=== PATIENT | female | born 1945 | race Caucasian/White ===

== ENCOUNTER 2018-07-21 20:35 | Inpatient (IN) ==
[2018-07-22] MEDS ORDERED: Naloxone 0.4 MG/ML INJ IVP PRN (02:27)
[2018-07-22] MEDS ORDERED: *HR* Dextrose 50 % in Water (Syg) 50 ML SYRINGE IVP PRN ×2 (02:31→19:32)
[2018-07-22] MEDS ORDERED: D5% in Water 1,000 ML IVC PRN ×2 (02:31→19:32)
[2018-07-22] MEDS ORDERED: Dextrose Gel 15 GM/37.5 ML TUBE PO PRN ×4 (02:31→19:32)
--- NOTE | 2018-07-22 02:49 | Internal Med History&Physical ---
Date of Encounter: 07/22/18 Time of Encounter: 01:30 Internal Medicine - H&P: HPI Chief complaint: Altered mental status Admitted From: Hospital to Hospital Transfer Plans for Post Hospital Care: Home History of present illness: Ms. Blakely is a 72 year old female Patient presented to the [facility] emergency room for altered mental status. She had been seen 2 days previously and was diagnosed with a DVT. She has a history of blood clots and was taking anticoagulation at home that she missed some doses. She was found to have a DVT and was started on Lovenox to be given at home. On the morning of her presentation she was difficult to awaken from sleep. In the afternoon her family brought her into the emergency room for further evaluation. 2 days ago as well patient had a low blood sugar in the 50s but she was asymptomatic. She has a history of stroke in 2010 affecting her left side. Her last known well was the evening prior to her presentation. Stroke alert was called. Vital signs: Temperature 90.8 degrees, pulse 83, respiratory rate 15, blood pressure 109/45, oxygen saturation 96 on 2 L. CBC: White count 19.8, hemoglobin 9.1, hematocrit 28.0, platelets 269. BMP: Sodium 136, potassium 4.6, chloride 104, bicarbonate 21, BUN 23, creatinine 1.53, glucose 128 Lactic acid 2.2 Ammonia 43 Total bilirubin 6.4 AST 133 ALT 126 Alkaline phosphatase 265 Troponin 0.06 Creatinine kinase 292 INR 1.3 Urinalysis: Large leukocyte esterase, numerous white blood cells, many bacteria, culture indicated Occult blood test negative Urine tox screen negative Blood alcohol level less than 10 EKG: Normal sinus rhythm with no ischemic changes. Imaging: Head CT: No acute intracranial abnormality, no change control specialist 48 hours Chest x-ray: No acute process Head and neck CT angiogram: Suboptimal due to contrast infiltration Abdomen and pelvis CT: No acute intra-abdominal or intrapelvic abnormality Emergency department spoke with neurology at [facility]. Recommended patient have an MRI, and opinion was thought that her symptoms may be more systematic problem than the simple stroke. Patient was given 2 L IV fluids, vancomycin and Zosyn. Blood cultures were drawn. Patient's mental status gradually improved, patient was started on heparin drip and transferred to [facility] for further management. Upon my evaluation, patient is resting comfortably in the hospital bed in no a cute distress. She is oriented to self, place, situation, birthday and patient new the current day. She denies chest pain, diarrhea, constipation, shortness of breath, dysuria. She has had middle abdominal pain, motion sickness from the ambulance ride and states that she has some pain when she has a bowel movement. Her family is at bedside. She states that she has a family history of blood cl ots as well as diabetes. She is a full code. Past Med Surg Social Fam HX - Past Medical History Medical history: COPD, CVA, diabetes, GERD, hyperlipidemia, hypertension, renal disease, other Additional medical history: CVA X3 Psychiatric history: no psych history - Past Surgical History Surgical History: cholecystectomy, other Additional surgical history: Tubal Ligation - Social History Smoking Status: Former smoker Smokeless Tobacco Status: No Alcohol use: none Drug use: none Internal Medicine - H&P: Meds Docusate [Colace] 100 mg PO BID 10/17/16 [History] Glimepiride [Amaryl] 3 mg PO DAILY 10/17/16 [History] Lisinopril [Zestril] 40 mg PO DAILY 10/17/16 [History] Omeprazole [PriLOSEC] 20 mg PO DAILY 10/17/16 [History] metFORMIN [Glucophage] 500 mg PO BIDWM 10/17/16 [History] Atorvastatin [Lipitor] 40 mg PO HS 07/19/18 [History] Enoxaparin [Lovenox] 150 mg SQ DAILY #30 syr 07/19/18 [Rx] Promethazine [Phenergan] 25 mg PO BID 07/19/18 [History] Allergy/AdvReac Type Severity Reaction Status Date / Time No Known Allergies Allergy Verified 07/19/18 14:42 All Systems PM: A 10-system review of systems was performed and is negative for pertinent findings except as documented above in the HPI. - Constitutional Vitals: Temp Pulse Resp BP Pulse Ox 97.9 F 79 15 117/56 95 07/22/18 00:31 07/22/18 00:31 07/22/18 00:31 07/22/18 00:31 07/22/18 00:31 General appearance: Present: cooperative, A&O X 2, pleasant, no acute distress, answers questions appropriately Exam: Patient alert to self, place, situation, birthdate and new the current day of the week. He could not think of the month. He - Head Head exam: Present: normal inspection - Eye Eye exam: Present: EOMI, scleral icterus - Respiratory Respiratory exam: Present: CTAB. Absent: rales, respiratory distress, rhonchi, wheezes - Cardiovascular Cardiovascular exam: Present: RRR. Absent: diastolic murmur, systolic murmur - GI/Abdominal GI/Abdominal exam: Present: normal bowel sounds, soft. Absent: tenderness Additional comments: Nontender to palpation - Extremities Exam Extremities exam: Present: calf tenderness, tenderness, warm, radial pulses palpable and symmetrical. Absent: pedal edema Additional comments: Left lower extremity tenderness - Neurological Exam Neurological exam: Present: motor sensory deficit. Absent: no focal deficits, strengths equal and symetr throughout, facial droop, speech deficit Additional comments: Left upper and lower extremity weakness compared to right, chronic secondary to CVA - Skin Skin exam: Present: dry, warm. Absent: normal color Additional comments: Jaundiced - Assessment and Plan (1) Altered mental status Current Visit: No Status: Acute Assessment and plan: Now improved from her initial presentation at [facility]. Family who are at bedside notice a significant improvement as well. No new focal neuro deficits. MRI in the morning Hold sedating meds Monitor blood sugars Qualifiers: Altered mental status type: somnolence Qualified Code(s): R40.0 - Somnolence (2) Elevated liver enzymes Current Visit: Yes Status: Acute Assessment and plan: Unknown cause. Patient denies history of hepatitis. Bilirubin 2 days ago was 2.4, now 6.4. Patient is jaundice on exam INR also elevated 1.3, and on repeat was 1.5. Platelet count stable however. Hepatitis panel in the morning Liver ultrasound Repeat a.m. labs GI consult (3) Anemia Current Visit: Yes Status: Acute Assessment and plan: Patient's hemoglobin has declined since her presentation to the ER on July 19. Her baseline is around 11. On repeat [facility] her hemoglobin was 9.1, then on recheck had dropped to 8.0. Stool occult blood test negative. No signs of obvious bleeding or bruising. Head CT negative. She has been on anticoagulants for some time. Started on heparin drip [facility]. Continue heparin drip, monitor for signs of bleeding. Type and screen Monitor CBC every 6 hours Qualifiers: Anemia type: unspecified type Qualified Code(s): D64.9 - Anemia, unspecified (4) Acute deep vein thrombosis (DVT) of iliac vein of left lower extremity Current Visit: No Status: Acute Assessment and plan: Patient started on heparin drip. Has history of blood clots, and has a family history of blood clots as well. Continue heparin drip. (5) UTI (urinary tract infection) Current Visit: No Status: Acute Assessment and plan: Patient had urine cultures from July 19 that have now grown back gram-negative rods. In the past she has grown out Escherichia coli sensitive to Zosyn. Repeat urine cultures as well as blood cultures were drawn and patient was started on vancomycin and Zosyn. Follow-up urine cultures Continue IV antibiotics Monitor for worsening signs of infection Qualifiers: Urinary tract infection type: site unspecified Hematuria presence: with hematuria Qualified Code(s): N39.0 - Urinary tract infection, site not specified; R31.9 - Hematuria, unspecified (6) Diabetes mellitus Current Visit: No Status: Acute Assessment and plan: Patient is not an insulin dependent diabetic Monitor sugars every 6 hours Nothing by mouth Low dose insulin sliding scale as needed Hold home meds. 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 Can consider repeating CT angiogram or MRI (8) DVT prophylaxis Current Visit: No Status: Inactive Assessment and plan: Continue heparin drip - Time Spent With Patient Total time spent is greater than 50% in coordination of care (as documented) at patient's floor/unit and/or counseling patient:
[2018-07-22] MEDS ORDERED: *HR* Heparin 5,000 UNIT/ML VIAL IVP PRN (03:01)
[2018-07-22] MEDS: Heparin 25,000 UNIT/250 ML D5W 25,000 UNIT/250 ML IV.SOLN IVC SCH (03:15)
[2018-07-22 03:49] LABS: Basophils % 0.1 %
[2018-07-22 03:51] LABS: Hematocrit 24.1 % (35.3-44.9); Hemoglobin 7.9 g/dL (11.5-15.4); Immature Granulocytes % 2.5 % (0-4); Mean Corpuscular HGB Conc 32.8 g/dL (31.6-35.5); Mean Corpuscular Volume 94.5 fL (83.0-100.0); Monocytes % 3.6 %; Neutrophils # 25.4 K/mcL (1.6-8.9); Platelet Count 226 K/mcL (140-400); Red Blood Count 2.55 M/mcL (3.82-4.97); Segmented Neutrophils % 86.8 %; White Blood Count 29.2 K/mcL (4.3-11.1)
[2018-07-22 03:53] LABS: Monocytes # 1.1 K/mcL (0.0-1.3)
[2018-07-22 04:15] LABS: Anisocytosis 1+ (Not Present); Hypochromasia Present (Not Present)
[2018-07-22 04:16] LABS: Platelet Estimate Normal (Normal)
[2018-07-22 04:19] LABS: Albumin 2.9 g/dL (3.5-5.7); Albumin/Globulin Ratio 0.9 (1.1-2.2); Bilirubin,Total 5.7 mg/dL (0.3-1.0); Calcium 8.1 mg/dL (8.6-10.3); Globulin 3.4 g/dL (2.4-3.5); Magnesium 1.4 mg/dL (1.6-2.6); Phosphorous 3.7 mg/dL (2.7-4.5); Potassium 4.5 mEq/L (3.5-5.1); Total Protein 6.3 g/dL (6.4-8.9); Troponin I 0.1 ng/mL (< 0.04)
[2018-07-22 04:31] LABS: INR 2.7; Prothrombin Time 30.2 Seconds (9.4-12.1)
[2018-07-22 04:34] LABS: Heparin anti-factor XA UFH > 2.00 IU/mL (0.30-0.70)
[2018-07-22 04:55] LABS: Activated Partial Thrombo Time > 360.0 Seconds (26.0-36.0)
[2018-07-22] MEDS: Insulin LISPRO 300 UNITS/3 ML VIAL SQ SCH ×4 (07:45→23:47)
[2018-07-22] MEDS ORDERED: Lidocaine -MPF 1% 5 ML AMPUL INFILT ONE (07:54)
[2018-07-22] MEDS ORDERED: Aspirin 325 MG TABLET PO ONE (09:41)
[2018-07-22 09:44] LABS: Hepatitis B Surface Antigen Nonreactive (Nonreactive)
--- NOTE | 2018-07-22 09:45 | Event Note ---
Date of Encounter: 07/22/18 Time of Encounter: 09:45 Patient is a 72y/o female transferred from [facility] for management of AMS and LE DVT. Patient seen and examined. Resting in bed and currently AAO x 3. Labs and vitals reviewed Noted to have worsening leukocytosis f/u blood, urine cultures f/u respiratory infection panel, legionell and strep pneumo ag. f/u liver US noted to have elevated TNI and cardiology evaluation has been requested As per records, pt was receiving Lovenox SQ prior to hospitalization, however unclear of the last administration time of Lovenox. Noted to have elevated level of Heparin Anti-Xa. Will hold heparin drip at this time. Repeat Heparin Anti-Xa, once normalized, will resume Heparin drip. Continue broad spectrum IV abx MRI brain reported lacunar infarct, neurology evaluation has been requested f/u 2D echo Care plan discussed with patient/RN/pharmacist/case management
[2018-07-22 10:13] LABS: Hepatitis C Virus Antibody Nonreactive (Nonreactive)
[2018-07-22 10:15] LABS: Hepatitis A Antibody IgM Reactive (Nonreactive); Hepatitis B Core IgM Reactive (Nonreactive)
[2018-07-22] MEDS: Piperacillin/Tazobactam 3.375 GM in 0.9 % Sodium Chloride Mini Bag 100 ML IVPB SCH ×3 (10:21→23:59)
[2018-07-22 10:44] LABS: Bilirubin,Urine Large (Negative); Blood,Urine Moderate (Negative); Color,Urine Yellow (Yellow); Glucose,Urine (UA) Normal (Normal); Ketones,Urine 15 mg/dL (Negative); Leukocyte Esterase,Urine Small (Negative); Nitrite,Urine Negative (Negative); PH,Urine 5.5 pH Units (5.0-8.0); Protein,Urine 100 mg/dL (Neg-Trace); Urobilinogen,Urine >=8.0 mg/dL (Normal)
[2018-07-22 10:59] LABS: Clarity,Urine Slightly Hazy (Clear)
[2018-07-22 11:02] LABS: Bacteria,Urine Few per hpf (None-Few); Squamous Epithelial Cell,Urine Few per lpf (None-Few)
[2018-07-22 11:04] LABS: Yeast,Urine Few per hpf (None Seen)
--- NOTE | 2018-07-22 11:56 | Gastroenterology Consult Note ---
<Clifford Paul - Last Filed: 07/22/18 11:54> Date of Encounter: 07/22/18 Time of Encounter: 09:40 - Assessment and plan (1) Elevated liver enzymes Current Visit: Yes Status: Acute Assessment and plan: On 07/19 total bili 2.4, AST 64, AT 122, and alk phos 230. Today total bili 5.7, AST 129, ALT 116, and alk phos 242. CT A/P at [facility] with no acute abnormality. Liver US with normal CBD and fatty liver. Patient is on Lipitor. Check MRCP. Complete liver workup. Hepatitis profile pending. - Time Spent With Patient Total time spent is greater than 50% in coordination of care (as documented) at patient's floor/unit and/or counseling patient: GI History of Present Illness - Data of Consult Patient: new to practice Consult date: 07/22/18 Requesting Physician: Piter Engle MD - Consult Narrative Reason for consult: Elevated LFTs History of present illness: Ms. Blakely is a 72 year old female with PMHx of COPD, CVA, DM, GERD, HLD, HTN, s/p cholecystectomy who presented to [facility] ED with AMS. She was diagnosed with DVT 2 days prior to admission. She has history to blood clots and missed some doses of her anticoagulation at home. We were consulted to evaluate elevated LFTs. On 07/19 total bili 2.4, AST 64, AT 122, and alk phos 230. Today total bili 5.7, AST 129, ALT 116, and alk phos 242. CT A/P at [facility] with no acute abnormality. Liver US with normal CBD and fatty liver. She denies any recent antibiotic use. She denies fever, chills, abdominal pain, nausea, vomiting, diarrhea, constipation, melena, or hematochezia. Procedures: EGD 12/29/2012 Dr. Rendon: Bile reflux gastritis. Colonoscopy 12/29/2012 Dr. Rendon: Normal. NSAIDs: None Anticoagulation: Lovenox Past Med Surg Social Fam HX - Past Medical History Medical history: COPD, CVA, diabetes, GERD, hyperlipidemia, hypertension, renal disease, other Additional medical history: CVA X3 Psychiatric history: no psych history - Past Surgical History Surgical History: cholecystectomy, other Additional surgical history: Tubal Ligation - Social History Smoking Status: Former smoker Smokeless Tobacco Status: No Alcohol use: none Drug use: none - Gastrointestinal Gastrointestinal: Present: as per HPI - Constitutional Constitutional: as per HPI - EENT Eyes: as per HPI Ears: Present: as per HPI Nose, mouth and throat: Present: as per HPI - Cardiovascular Cardiovascular ROS: Present: as per HPI - Respiratory Respiratory IM: Present: as per HPI - Genitourinary Genitourinary: Absent: change in color, Urinary frequency - Neurological ROS Neurological GI: Present: as per HPI - Hematologic/Lymphatic Hematologic/Lymphatic pediatric: Present: as per HPI - Musculoskeletal Musculoskeletal ROS GI: Present: as per HPI - Integumentary Integumentary GI: Present: as per HPI - Psychiatric ROS Psychiatric GI: Present: as per HPI - Endocrine Endocrine IM: Present: as per HPI - Constitutional Vitals: Temp Pulse Resp BP Pulse Ox 99.0 F 76 15 142/66 97 07/22/18 07:24 07/22/18 08:00 07/22/18 07:24 07/22/18 07:24 07/22/18 07:24 General appearance: Present: cooperative, A&O X 3, no acute distress, answers questions appropriately - Head Head exam: Present: atraumatic, normocephalic - Eye Eye exam: Present: scleral icterus - ENT ENT exam: Present: mucous membranes moist - Neck Neck exam general surgery: Present: normal inspection, trachea midline - Respiratory Respiratory exam: Present: CTAB. Absent: rales, rhonchi - Cardiovascular Cardiovascular exam: Present: RRR, +S1, +S2 - GI/Abdominal GI/Abdominal exam: Present: soft, no peritoneal signs. Absent: distended, firm, guarding, tenderness - Rectal Rectal exam: Present: deferred - Extremities Exam Extremities exam: Present: warm - Neurological Exam Neurological exam: Present: no focal deficits - Psychiatric Psychiatric exam: Present: normal affect, normal mood - Skin Skin exam: Present: dry, intact, warm. Absent: normal color (jaundice) Results - Labs CBC & Chem 7: 07/22/18 03:30 07/22/18 03:19 Labs: Last Result 07/22/18 07/22/18 03:19 08:20 Calcium 8.1 L Troponin I 0.10 H* 0.98 H* Entire Visit 07/22/18 07/22/1819 03:19 03:19 03:30 Hgb 7.9 L Hct 24.1 L PT 30.2 H D Total Bilirubin 5.7 H AST 129 H ALT 116 H - ABG ABG results: PT/INR, D-dimer PT 30.2 Seconds (9.4-12.1) H D 07/22/18 03:19 - Impressions Impressions Brain MRI 07/22/18 03:07 IMPRESSION: 1. Punctate lacunar infarction in the right subinsular white matter. No associated hemorrhage. 2. Parenchymal volume loss and sequela of chronic microvascular ischemic changes and old infarctions. The findings were sent to the Radiology Results Communication Center at 9:44 am on 07/22/2018to be communicated to a licensed caregiver. D/ / Uriel Aquino MD / Uriel Aquino MD Interpreting Provider: Uriel Aquino MD Liver Ultrasound 07/22/18 08:20 IMPRESSION: Status post cholecystectomy, with normal caliber common duct for the post cholecystectomy state. Hepatic echotexture can be in keeping with fatty liver or hepatocellular disease. D/ / Piter Briseno MD / Piter Briseno MD Interpreting Provider: Piter Briseno MD Consult Discharge Plan - Plan Referrals: Andriy West MD [Primary Care Provider] - 08/01/18 10:30 am <Nicholas Weaver - Last Filed: 07/22/18 14:54> Date of Encounter: 07/22/18 Time of Encounter: 14:00 - Time Spent With Patient Total time spent is greater than 50% in coordination of care (as documented) at patient's floor/unit and/or counseling patient: GI History of Present Illness - Data of Consult Requesting Physician: Piter Engle MD - Consult Narrative History of present illness: Ms. Blakely is a 72 year old female - Constitutional Vitals: Temp Pulse Resp BP Pulse Ox 97.5 F L 68 16 126/61 96 07/22/18 12:10 07/22/18 12:10 07/22/18 12:10 07/22/18 12:10 07/22/18 12:10 Results - Labs CBC & Chem 7: 07/22/18 03:30 07/22/18 03:19 Labs: Last Result 07/22/18 07/22/18 03:19 08:20 Calcium 8.1 L Troponin I 0.10 H* 0.98 H* Entire Visit 07/22/18 07/22/18 07/22/18 03:19 03:19 03:30 Hgb 7.9 L Hct 24.1 L PT 30.2 H D Total Bilirubin 5.7 H AST 129 H ALT 116 H - ABG ABG results: PT/INR, D-dimer PT 30.2 Seconds (9.4-12.1) H D 07/22/18 03:19 - Impressions Impressions Brain MRI 07/22/18 03:07 IMPRESSION: 1. Punctate lacunar infarction in the right subinsular white matter. No associated hemorrhage. 2. Parenchymal volume loss and sequela of chronic microvascular ischemic changes and old infarctions. The findings were sent to the Radiology Results Communication Center at 9:44 am on 07/22/2018to be communicated to a licensed caregiver. D/ / Uriel Aquino MD / Uriel Aquino MD Interpreting Provider: Uriel Aquino MD Liver Ultrasound 07/22/18 08:20 IMPRESSION: Status post cholecystectomy, with normal caliber common duct for the post cholecystectomy state. Hepatic echotexture can be in keeping with fatty liver or hepatocellular disease. D/ / Piter Briseno MD / Piter Briseno MD Interpreting Provider: Piter Briseno MD Abdomen MRI 07/22/18 09:36 IMPRESSION: Status post cholecystectomy. Two small stones in the common bile duct measuring up to 4 mm in size without significant biliary ductal dilatation. Unremarkable appearance of the pancreatic duct. Mild hepatic steatosis. D/ / 07/22/2018 12:07:35 Alexandre Mora MD / Génesis Banks Interpreting Provider: Alexandre Mora MD - Attending Attestation I have personally performed a face to face evaluation on this patient. I have reviewed and agree with the care plan. History and Exam by me shows: Patient seen. Examination patient is mildly jaundiced. Assessment: Patient with elevated LFTs due to Acute Hep A. #2: CBD stone but no biliary dilation obstruction. Doubt that CBD obstruction stone is causing any of her elevated LFTs. Recommendation: Symptomatic care for her acute hepatitis A. Patient will need ERCP with CBD stone removal in the near future once acute hepatitis A resolved
[2018-07-22] MEDS: 0.9 % Sodium Chloride 1,000 ML IVC SCH (13:07)
--- NOTE | 2018-07-22 13:33 | Cardiology Consult Note ---
<Magen Villafuerte - Last Filed: 07/22/18 14:10> Date of Encounter: 07/22/18 Time of Encounter: 13:31 Assessment and Plan (1) Elevated troponin Current Visit: Yes Status: Acute Elevated troponin at 0.10, 0.98. EKG -SR with possible old inferior infarct. Patient denies history of CAD. Denies chest pain. Likely demand ischemia in setting of acute anemia. Check TTE. Continue to trend troponin. She is a poor candidate for further ischemic evaluation with acute anemia. Do not recommend heparin gtt with anemia and INR 2.7. Discussion w patient/family: The assessment and plan as outlined above was discussed with the patient and/or family members who expressed understanding and agreement. All questions were ans wered. Thank you for involving us in the care of your patient. Please call with any questions. History of Present Illness Consult date: 07/22/18 Requesting physician: Clarita Waters Consult reason: elevated troponin Chief complaint: AMS History of present illness: Ms. Blakely is a 72 year old female with past medical history of DVT on SQ lovenox at home, DM type II, CVA, and HTN who presented to [facility] with AMS. She was found to have elevated troponin and was transferred to [facility] for further evaluation. She is also found to have lucunar infarct of MRI, neurology consulted. WBC seen to be elevating and she is undergoing work-up for infection. GI consulted for liver enzyme elevation. Cardiology consulted for elevated troponin. Patient is drowsy on my exam but answers questions appropriately. Denies history of CAD. Denies chest pain or SOB. Denies palpitations. Admits to BLE edema and orthopnea. She is unable to describe symptoms leading to hospitalization. Past Med Surg Social Fam HX - Past Medical History Medical history: COPD, CVA, diabetes, GERD, hyperlipidemia, hypertension, renal disease, other Additional medical history: CVA X3 Psychiatric history: no psych history - Past Surgical History Surgical History: cholecystectomy, other Additional surgical history: Tubal Ligation - Social History Smoking Status: Former smoker Smokeless Tobacco Status: No Alcohol use: none Drug use: none Medications and Allergies Docusate [Colace] 100 mg PO BID 10/17/16 [History] Glimepiride [Amaryl] 3 mg PO DAILY 10/17/16 [History] Lisinopril [Zestril] 40 mg PO DAILY 10/17/16 [History] Omeprazole [PriLOSEC] 20 mg PO DAILY 10/17/16 [History] metFORMIN [Glucophage] 500 mg PO BIDWM 10/17/16 [History] Atorvastatin [Lipitor] 40 mg PO HS 07/19/18 [History] Enoxaparin [Lovenox] 150 mg SQ DAILY #30 syr 07/19/18 [Rx] Promethazine [Phenergan] 25 mg PO BID 07/19/18 [History] Allergy/AdvReac Type Severity Reaction Status Date / Time No Known Allergies Allergy Verified 07/19/18 14:42 All Systems Review: The remainder of the systems were reviewed and are negative Physical Examination Vital Signs, Last 4 Hours Temp Pulse Resp BP Pulse Ox 07/22/18 12:10 97.5 F L 68 16 126/61 96 07/22/18 12:00 76 General: Conversant, No Apparent Distress, Other (drowsy) HEENT: Atraumatic, Normocephaly, Mucus Membranes Moist Neck: No JVD, Normal carotid pulses Cardiac: Reg Rate and Rhythm, Normal S1 and S2, No Murmur Lungs: Normal Breath Sounds, No Wheeze, Rales, Rhonchi Neuro: No focal deficits noted, Other (drowsy, favors right side, left sided weakness) Abdomen: Soft, Non-Tender Skin: No rashes noted on visualized skin Musculoskeletal: No Chest Wall Tenderness Extremities: No Clubbing, No Cyanosis, No Edema, Normal Pulses, Other (Trace BLE edema) Results 07/22/18 03:30 07/22/18 03:19 Lab Results 07/22/18 07/22/18 07/22/18 03:19 03:19 03:30 WBC 29.2 H Hgb 7.9 L Hct 24.1 L Plt Count 226 INR 2.7 D APTT > 360.0 H* D Sodium 140 Potassium 4.5 Chloride 109 H Carbon Dioxide 19 L BUN 28 H Creatinine 1.20 Glucose 155 H Calcium 8.1 L Magnesium 1.4 L Total Bilirubin 5.7 H AST 129 H ALT 116 H Alkaline Phosphatase 242 H Troponin I 0.10 H* 07/22/18 08:20 WBC Hgb Hct Plt Count INR APTT Sodium Potassium Chloride Carbon Dioxide BUN Creatinine Glucose Calcium Magnesium Total Bilirubin AST ALT Alkaline Phosphatase Troponin I 0.98 H* - Imaging and Cardiology Echo: pending - EKG Interpretation EKG results cardiology: personally reviewed Consult Discharge Plan - Plan Referrals: Andriy West MD [Primary Care Provider] - 08/01/18 10:30 am <Luis E Russell - Last Filed: 07/22/18 17:39> Date of Encounter: 07/22/18 - Attending Attestation Patient was seen and evaluated independently by me. Findings, assessment and plan were discussed at length with patient, questions answered. Agree with nurse practitioner's/resident's documentation. Addition as follows, Consulted for elevated troponin. 72yoCF ho CVAs, recent LLE DVT, DM, HTN, HLD. P/w AMS and worsening left hemiparesis which gradually resolved. MRI revealed acute CVA. Denied chest pain, dyspnea or palpitations. Trop max 1 and down trending. ECG SR, old IMI. Tele no events. VSS, CTA B/L, RR, LLE tenderness diameter>RLE. New moderate anemia, leukocytosis, PEDRO, hepatopathy. A: Mild troponin elevation, down trending, type II vs I Acute CVA Recent LLE DVT on A/C New moderate anemia Sepsis Hepatopathy P: pending TTE, if low EF, will need add BB and resume ACEi after PEDRO resolves c/w ASA, statin A/C plan per primary team (DVT, new anemia) likely outpatient ischemia workup Luis E Russell MD, PhD Assessment and Plan Discussion w patient/family: The assessment and plan as outlined above was discussed with the patient and/or family members who expressed understanding and agreement. All questions were answered. Thank you for involving us in the care of your patient. Please call with any questions. History of Present Illness History of present illness: Ms. Blakely is a 72 year old female All Systems Review: The remainder of the systems were reviewed and are negative Physical Examination Vital Signs, Last 4 Hours Temp Pulse Resp BP Pulse Ox 07/22/18 16:58 98.0 F 77 16 109/61 97 Results 07/22/18 03:30 07/22/18 03:19 Lab Results 07/22/18 07/22/18 07/22/18 03:19 03:19 03:30 WBC 29.2 H Hgb 7.9 L Hct 24.1 L Plt Count 226 INR 2.7 D APTT > 360.0 H* D Sodium 140 Potassium 4.5 Chloride 109 H Carbon Dioxide 19 L BUN 28 H Creatinine 1.20 Glucose 155 H Calcium 8.1 L Magnesium 1.4 L Total Bilirubin 5.7 H AST 129 H ALT 116 H Alkaline Phosphatase 242 H Troponin I 0.10 H* 07/22/18 07/22/18 07/22/18 08:20 14:20 15:30 WBC Hgb Hct Plt Count INR 1.8 APTT Sodium Potassium Chloride Carbon Dioxide BUN Creatinine Glucose Calcium Magnesium Total Bilirubin AST ALT Alkaline Phosphatase Troponin I 0.98 H* 0.08 H*
--- NOTE | 2018-07-22 15:15 | Neurology - Consult Note ---
Date of Encounter: 07/22/18 Time of Encounter: 15:08 Assessment and Plan (1) Acute CVA (cerebrovascular accident) Current Visit: Yes Status: Acute neuro consulted for acute CVA; etiology is a small vessel ischemic event MRI confirmed an acute punctate lacunar infarct in th right subinsular white matter She p/w AMS and confusion and increasing LUE, LLE weakness (chronically has Lt sided weakness s/p remote infarct) AMS and confusion has resolved. Neuro exam reveals B/L leg weakness Lt greater than right 3/5 on motor strength scale Left sided weakness is most likely exacerbated by underlying medical conditions One would not expect an infarct in the right subinsular white matter to cause motor sx; it would however, explain AMS and confusion She is ASA naive; I have started 81mg ASA QD now; will need to be on chronically for future CVA prevention C/W statin I strongly encouraged risk factor modifications and medication compliance c/w neuro assessments per protocol okay to normlize BP TTE pending Carotid duplex pending c/w medical and supportive care further recommendations pending the rest of the workup History of Present Illness Chief complaint: Acute CVA HPI: Ms. Blakely is a 72 year old female with a PMH of DM, GERD, HLD, HTN, renal disease and CVA 3. She presents to [facility] with a chief complaint of altered mental status and left-sided weakness. Of note, she was seen at [facility] 2 days ago and found to have an acute DVT in the left lower extremity. 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 In regards to the altered mental status and left-sided weakness she reports that approximately 2 days ago she began having episodes of confusion. She notes left sided weakness chronically but she reports that the weakness she is experiencing now is much worse than baseline. She denies any speech difficulty, dysphagia, headaches, dizziness, visual disturbance, ataxia, or paresthesias. She reports that her mental status is much improved since admission and is now alert and oriented 4. MRI of the brain confirmed an acute punctate lacunar infarct in the right 7 sellar white matter without associated hemorrhage. There is also parenchymal volume loss and subsequent of chronic microvascular ischemic changes and old infarctions. Past Med Surg Social Fam HX - Past Medical History Medical history: COPD, CVA, diabetes, GERD, hyperlipidemia, hypertension, renal disease, other Additional medical history: CVA X3 Psychiatric history: no psych history - Past Surgical History Surgical History: cholecystectomy, other Additional surgical history: Tubal Ligation - Social History Smoking Status: Former smoker Smokeless Tobacco Status: No Alcohol use: none Drug use: none Medications and Allergies Docusate [Colace] 100 mg PO BID 10/17/16 [History] Glimepiride [Amaryl] 3 mg PO DAILY 10/17/16 [History] Lisinopril [Zestril] 40 mg PO DAILY 10/17/16 [History] Omeprazole [PriLOSEC] 20 mg PO DAILY 10/17/16 [History] metFORMIN [Glucophage] 500 mg PO BIDWM 10/17/16 [History] Atorvastatin [Lipitor] 40 mg PO HS 07/19/18 [History] Enoxaparin [Lovenox] 150 mg SQ DAILY #30 syr 07/19/18 [Rx] Promethazine [Phenergan] 25 mg PO BID 07/19/18 [History] Allergy/AdvReac Type Severity Reaction Status Date / Time No Known Allergies Allergy Verified 07/19/18 14:42 All Systems: The remainder of the systems were reviewed and are negative Review of Systems: REVIEW OF SYSTEMS GENERAL: Negative for any nausea, vomiting, fevers, chills NEUROLOGIC: Positive-left arm and leg weakness worse than baseline. However she chronically has left-sided weakness S/P CVA. She is also reporting an altered mental status and confusion. This is also back to baseline. PSYCH: Mental status changes; patient reporting confusion. She is now back to baseline CARDIAC: Negative for any chest pain, dyspnea, peripheral edema or palpitations MUSCULOSKELETAL: Positive-loss of strength left arm and left leg Physical Examination - Vital Signs Vital Signs: Initial Vital Signs Temp Pulse Resp BP Pulse Ox 97.9 F 78 15 117/56 95 07/22/18 00:16 07/22/18 00:16 07/22/18 00:16 07/22/18 00:16 07/22/18 00:16 - Exam Exam: Examination: General Examination: *CONSTITUTIONAL: Alert and oriented x4, no acute distress *GENERAL APPEARANCE OF PATIENT ill appearing elderly, obese female *EYES: pupils equal, round, reactive to light and accommodation, conjunctiva clear *CARDIOVASCULAR no peripheral edema, distal temperature normal, dorsalis pedis pulses normal. see vitals Musculoskeletal: *GAIT AND STATION deferred *ASSESSMENT OF MUSCLE STRENGTH IN THE UPPER AND LOWER EXTREMITIES bilateral deltoid, bicep, tricep, template fitter strength 4/5, bilateral hip flexors ,anterior tibialis, dorsoflexion of the foot 3/5; however LLE is weaker in weaker weakner than RLE *MUSCLE TONE IN THE UPPER AND LOWER EXTREMITIES normal. No abnormal movements, fasciculations or atrophy identified. Neurological: *ORIENTATION to person, situation, time and place *RECURRENT AND REMOTE MEMORY intact *ATTENTION AND CONCENTRATION are normal *LANGUAGE FUNCTION no significant aphasia or dysarthia was noted. *FUND OF KNOWLEDGE aware of current events, past history, vocabulary *MENTAL attention span and concentration normal. *CN II optic fundi were normal, no papilledema noted. *CN III,IV, PERRLA extraocular eye movements were full, no nystagmus and no ptosis noted. *CN V shows normal sensation and jaw opens symmetrically. *CN VII shows normal facial movement symmetrically, upper and lower bilaterally. *CN VIII shows no significant hearing loss on exam *CN IX,,X palate elevated symmetrically *CN XI normal strength in the sternocleidomastoid muscles, symmetrical shoulder shrugging. *CN XII tongue protruded in the midline, with normal strength and movement. *SENSORY EXAMINATION light touch intact *REFLEXES: deep tendon reflexes were normal and symmetrical , grade 1/4 diffusely, no pathological reflexes were noted. *CEREBELLAR TESTING normal finger to nose, *PAIN LEVEL 0/10 Results - Laboratory Findings CBC and BMP: 07/22/18 03:30 07/22/18 03:19 Abnormal lab findings: Abnormal lab results WBC 29.2 K/mcL (4.3-11.1) H 07/22/18 03:30 RBC 2.55 M/mcL (3.82-4.97) L 07/22/18 03:30 Hgb 7.9 g/dL (11.5-15.4) L 07/22/18 03:30 Hct 24.1 % (35.3-44.9) L 07/22/18 03:30 RDW 20.0 % (11.5-14.5) H 07/22/18 03:30 25.4 K/mcL (1.6-8.9) H 07/22/18 03:30 Present (Not Present) A 07/22/18 03:30 1+ (Not Present) A 07/22/18 03:30 PT 30.2 Seconds (9.4-12.1) H D 07/22/18 03:19 APTT > 360.0 Seconds (26.0-36.0) H* D 07/22/18 03:19 Heparin Anti-Xa, Unfract 1.63 IU/mL (0.30-0.70) H* 07/22/18 10:05 Chloride 109 mEq/L (98-107) H 07/22/18 03:19 Carbon Dioxide 19 mEq/L (23-29) L 07/22/18 03:19 BUN 28 mg/dL (8-23) H 07/22/18 03:19 Est GFR ( Amer) 53 (> 60) L 07/22/18 03:19 Est GFR (Non-Af Amer) 44 (> 60) L 07/22/18 03:19 Glucose 155 mg/dL (70-105) H 07/22/18 03:19 POC Glucose 153 mg/dL (70-99) H 07/22/18 05:27 Calcium 8.1 mg/dL (8.6-10.3) L 07/22/18 03:19 Magnesium 1.4 mg/dL (1.6-2.6) L 07/22/18 03:19 5.7 mg/dL (0.3-1.0) H 07/22/18 03:19 AST 129 Units/L (13-39) H 07/22/18 03:19 ALT 116 Units/L (7-52) H 07/22/18 03:19 242 Units/L (34-104) H 07/22/18 03:19 0.08 ng/mL (< 0.04) H* 07/22/18 14:20 6.3 g/dL (6.4-8.9) L 07/22/18 03:19 2.9 g/dL (3.5-5.7) L 07/22/18 03:19 0.9 (1.1-2.2) L 07/22/18 03:19 100 mg/dL (Neg-Trace) H 07/22/18 10:30 15 mg/dL (Negative) H 07/22/18 10:30 Moderate (Negative) H 07/22/18 10:30 Large (Negative) H 07/22/18 10:30 >=8.0 mg/dL (Normal) H 07/22/18 10:30 Ur Leukocyte Esterase Small (Negative) H 07/22/18 10:30 3-5 per hpf (0-3) H 07/22/18 10:30 5-15 per hpf (0-3) H 07/22/18 10:30 Few per hpf (None Seen) H 07/22/18 10:30 Ur Culture Indicated? YES (NO) A 07/22/18 10:30 Hepatitis A IgM Ab Reactive (Nonreactive) H 07/22/18 08:20 Hep B Core IgM Ab Reactive (Nonreactive) H 07/22/18 08:20 - Diagnostic Findings Additional findings: MR/MR head/brain wo con IMPRESSION: 1. Punctate lacunar infarction in the right subinsular white matter. No associated hemorrhage. 2. Parenchymal volume loss and sequela of chronic microvascular ischemic changes and old infarctions. Consult Discharge Plan - Plan Referrals: Andriy West MD [Primary Care Provider] - 08/01/18 10:30 am
[2018-07-22 15:48] LABS: INR 1.8; Prothrombin Time 19.9 Seconds (9.4-12.1)
[2018-07-23] MEDS ORDERED: Naloxone 0.4 MG/ML INJ IVP PRN (01:31)
[2018-07-23 01:33] LABS: Basophils % 0.1 %; Eosinophils % 0.2 %; Hematocrit 21.2 % (35.3-44.9); Hemoglobin 6.8 g/dL (11.5-15.4); Lymphocytes # 1.3 K/mcL (0.6-4.6); Lymphocytes % 8.9 %; Mean Corpuscular HGB Conc 32.1 g/dL (31.6-35.5); Mean Corpuscular Hemoglobin 30.6 pg (28.0-33.3); Mean Corpuscular Volume 95.5 fL (83.0-100.0); Mean Platelet Volume 10.7 fL (9.4-12.4); Monocytes # 0.5 K/mcL (0.0-1.3); Monocytes % 3.1 %; Neutrophils # 12.7 K/mcL (1.6-8.9); Platelet Count 248 K/mcL (140-400); Red Blood Count 2.22 M/mcL (3.82-4.97); Red Cell Distribution Width 20.3 % (11.5-14.5); Segmented Neutrophils % 86.7 %; White Blood Count 14.7 K/mcL (4.3-11.1)
[2018-07-23 01:42] LABS: INR 1.4; Prothrombin Time 15.3 Seconds (9.4-12.1)
[2018-07-23 01:55] LABS: Albumin 2.5 g/dL (3.5-5.7); Albumin/Globulin Ratio 0.8 (1.1-2.2); Bilirubin,Total 2.8 mg/dL (0.3-1.0); Calcium 7.4 mg/dL (8.6-10.3); Globulin 3.2 g/dL (2.4-3.5); Magnesium 1.4 mg/dL (1.6-2.6); Phosphorous 2.6 mg/dL (2.7-4.5); Potassium 3.5 mEq/L (3.5-5.1); Total Protein 5.7 g/dL (6.4-8.9)
[2018-07-23] MEDS: Heparin 25,000 UNIT/250 ML D5W 25,000 UNIT/250 ML IV.SOLN IVC SCH (01:55)
[2018-07-23] MEDS: *HR* OxyCODONE Immed Rel 5 MG TABLET PO PRN (01:59)
[2018-07-23 02:31] LABS: Adenovirus Not Detected (Not Detect); Bordetella Pertussis Not Detected (Not Detect); Chlamydophila pneumoniae Not Detected (Not Detect); Coronavirus 229E Not Detected (Not Detect); Coronavirus HKU1 Not Detected (Not Detect); Coronavirus NL63 Not Detected (Not Detect); Coronavirus OC43 Not Detected (Not Detect); Human Metapneumovirus Not Detected (Not Detect); Human Rhinovirus/Enterovirus Not Detected (Not Detect); Influenza A Subtype 2009 H1 Not Detected (Not Detect); Influenza A Untypeable Not Detected (Not Detect); Influenza B Not Detected (Not Detect); Mycoplasma pneumoniae Not Detected (Not Detect); Parainfluenza Virus 1 Not Detected (Not Detect); Parainfluenza Virus 2 Not Detected (Not Detect); Parainfluenza Virus 3 Not Detected (Not Detect); Parainfluenza Virus 4 Not Detected (Not Detect); Respiratory Syncytial Virus Not Detected (Not Detect)
[2018-07-23] MEDS: Acetaminophen 325 MG TABLET PO PRN (03:38)
[2018-07-23] MEDS: 0.9 % Sodium Chloride 1,000 ML IVC SCH ×2 (03:41→21:55)
[2018-07-23 04:04] LABS: Basophils % 0.1 %; Eosinophils # 0.1 K/mcL (0.0-0.6); Eosinophils % 0.4 %; Hematocrit 20.9 % (35.3-44.9); Hemoglobin 6.9 g/dL (11.5-15.4); Immature Granulocytes % 0.7 % (0-4); Lymphocytes # 1.3 K/mcL (0.6-4.6); Lymphocytes % 9.3 %; Mean Corpuscular Hemoglobin 31.7 pg (28.0-33.3); Mean Corpuscular Volume 95.9 fL (83.0-100.0); Mean Platelet Volume 11.1 fL (9.4-12.4); Monocytes # 0.5 K/mcL (0.0-1.3); Monocytes % 3.3 %; Neutrophils # 11.7 K/mcL (1.6-8.9); Platelet Count 273 K/mcL (140-400); Red Blood Count 2.18 M/mcL (3.82-4.97); Red Cell Distribution Width 20.5 % (11.5-14.5); Segmented Neutrophils % 86.2 %; White Blood Count 13.6 K/mcL (4.3-11.1)
[2018-07-23] MEDS: Insulin LISPRO 300 UNITS/3 ML VIAL SQ SCH ×4 (05:28→23:36)
[2018-07-23 07:08] LABS: Eosinophils # 0.1 K/mcL (0.0-0.6); Eosinophils % 0.4 %; Hematocrit 20.2 % (35.3-44.9); Hemoglobin 6.6 g/dL (11.5-15.4); Immature Granulocytes % 1.1 % (0-4); Lymphocytes # 1.4 K/mcL (0.6-4.6); Mean Corpuscular HGB Conc 32.7 g/dL (31.6-35.5); Mean Corpuscular Hemoglobin 31.3 pg (28.0-33.3); Mean Corpuscular Volume 95.7 fL (83.0-100.0); Mean Platelet Volume 10.5 fL (9.4-12.4); Monocytes # 0.5 K/mcL (0.0-1.3); Monocytes % 3.5 %; Neutrophils # 10.8 K/mcL (1.6-8.9); Platelet Count 229 K/mcL (140-400); Red Blood Count 2.11 M/mcL (3.82-4.97); Red Cell Distribution Width 20.4 % (11.5-14.5); White Blood Count 12.8 K/mcL (4.3-11.1)
[2018-07-23] MEDS: Piperacillin/Tazobactam 3.375 GM in 0.9 % Sodium Chloride Mini Bag 100 ML IVPB SCH ×3 (08:37→23:41)
[2018-07-23] MEDS: Aspirin 81 MG TAB.CHEW PO SCH (08:38)
--- NOTE | 2018-07-23 12:55 | Event Note ---
Date of Encounter: 07/23/18 Time of Encounter: 12:54 - Cardiology Event Note Discussed with Dr. Russell. TTE read, EF preserved with no significant abnormalities noted. Final report has not yet crossed over. Cardiology signing off. Reconsult PRN.
[2018-07-23 13:31] LABS: Basophils % 0.1 %; Eosinophils # 0.1 K/mcL (0.0-0.6); Eosinophils % 0.8 %; Hematocrit 21.2 % (35.3-44.9); Hemoglobin 6.9 g/dL (11.5-15.4); Immature Granulocytes % 1.5 % (0-4); Lymphocytes # 1.3 K/mcL (0.6-4.6); Lymphocytes % 10.7 %; Mean Corpuscular HGB Conc 32.5 g/dL (31.6-35.5); Mean Corpuscular Hemoglobin 31.2 pg (28.0-33.3); Mean Corpuscular Volume 95.9 fL (83.0-100.0); Mean Platelet Volume 10.5 fL (9.4-12.4); Monocytes # 0.4 K/mcL (0.0-1.3); Monocytes % 3.5 %; Platelet Count 231 K/mcL (140-400); Red Blood Count 2.21 M/mcL (3.82-4.97); Red Cell Distribution Width 20.3 % (11.5-14.5); Segmented Neutrophils % 83.4 %
[2018-07-23] MEDS ORDERED: 0.9 % Sodium Chloride 250 ML ONE (14:08)
--- NOTE | 2018-07-23 16:01 | Internal Med Progress Note ---
Hospitalist Progress Note - Encounter Date of Encounter: 07/23/18 Time of Encounter: 15:58 - Subjective Interval History: Patient seen and examined earlier this morning with RN present at bedside. She denies any pain but reports of weakness. No shortness of breath or chest pain reported. Pt is noted to have a drop in H&H and initially refused PRBC transfusion. After my discussion with the patient, she agreed to receiving PRBC transfusion. Will obtain stool occult again given consistent drop in H&H. Ten point ROS is negative except as listed above I spoke with hematology in regards to patient's anemia and LE DVT with an acute CVA. As per hematology, pt should be continued on heparin drip with close monitoring of H&H. Will monitor H&H q6h and resend stool occult. Transfuse for Hgb<7 Hold heparin drip if stool occult is positive. - Exam Vitals: Temp Pulse Resp BP Pulse Ox 97.6 F 65 15 135/68 98 07/23/18 14:49 07/23/18 14:49 07/23/18 14:49 07/23/18 14:49 07/23/18 14:49 Exam: General: No acute distress, awake and alert, obese HEENT: EOMI, PERRLA, NC/AT, no scleral icterus Respiratory: Diminished breath sounds, scattered rales, no wheezing Cardiovascular: Regular, Rate, Rhythm, No murmurs GI: Soft, Non tender, non distended, normal bowel sounds Ext: trace LE edema, no tenderness, positive pulses Neuro: awake and alert, left hemiparesis Rest of the clinical exam is noncontributory - Assessment and Plan (1) Diabetes mellitus Current Visit: No Status: Acute (2) CVA, old, 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 Acute change in mental status likely multifactorial-secondary to bacteremia-likely secondary to UTI; hepatitis A, and acute CVA mental status improved and back to baseline continue broad spectrum IV abx f/u repeat blood cultures f/u urine cultures 2. Acute CVA neurology evaluation appreciated diet adjusted as per speech therapist's recommendations awaiting carotid doppler PT eval recommending inpatient rehab continue aspirin and statin therapy 3. Elevated TNI cardiology input appreciated, cardiology signed off no acute intervention recommended 4. UTI continue IV abx f/u official urine culture report 5. Elevated transaminases likely secondary to Hepatitis A GI follow up requested continue supportive care 6. LE DVT hematology evaluation requested continue heparin drip at this time closely monitor H&H 7. Acute on chronic anemia stool occult negative: 07/22/18, will repeat study pt receiving One unit PRBC today, will monitor H&H closely as per hematology, pt is to continue on heparin drip. will transfuse to maintain hgb>7. If stool occult positive, hold heparin drip Will obtain surgery evaluation for EGD And colonoscopy if stool occult positive as no GI is available over the weekend f/u iron studies, ferritin level B12 and folate within normal range 8. Hypomagnesemia Mg supplemented continue to monitor electrolytes and replace as needed 9. DM type II sliding scale insulin algorithm monitor fingerstick and blood glucose ADA diet DVT ppx: restarting heparin drip Care plan discussed with patient/RN/consulting provider - Time Spent with Patient Total time spent is greater than 50% in coordination of care (as documented) at patient's floor/unit and/or counseling patient: 45minutes Greater than 35 minutes Internal Medicine: Result - Labs CBC & Chem 7: 07/23/18 13:20 07/23/18 01:15 Labs: Short CBC 07/23/18 07/23/18 07/23/18 Range/Units 01:15 03:45 06:57 WBC 14.7 H 13.6 H 12.8 H (4.3-11.1) K/mcL Hgb 6.8 L 6.9 L 6.6 L (11.5-15.4) g/dL Hct 21.2 L 20.9 L 20.2 L (35.3-44.9) % Plt Count 248 273 229 (140-400) K/mcL Neutrophils # 12.7 H 11.7 H 10.8 H (1.6-8.9) K/mcL 07/23/18 Range/Units 13:20 WBC 12.0 H (4.3-11.1) K/mcL Hgb 6.9 L (11.5-15.4) g/dL Hct 21.2 L (35.3-44.9) % Plt Count 231 (140-400) K/mcL Neutrophils # 10.0 H (1.6-8.9) K/mcL BMP 07/23/18 01:15 Sodium 139 Potassium 3.5 Chloride 108 H Carbon Dioxide 23 BUN 39 H Creatinine 1.12 Glucose 94 Calcium 7.4 L Liver Function 07/23/18 Range/Units 01:15 Total Bilirubin 2.8 H (0.3-1.0) mg/dL AST 87 H (13-39) Units/L ALT 86 H (7-52) Units/L Alkaline Phosphatase 214 H (34-104) Units/L Albumin 2.5 L (3.5-5.7) g/dL - ABG Interpretation ABG results: PT/INR, D-dimer PT 15.3 Seconds (9.4-12.1) H 07/23/18 01:15 Consult Discharge Plan - Plan Referrals: Andriy West MD [Primary Care Provider] - 08/01/18 10:30 am (1) Diabetes mellitus Qualifiers: Diabetes mellitus type: type 2 Diabetes mellitus 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 insulin 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 Chronic kidney disease stage: stage 3 (moderate) Qualified Code(s): E11.22 - Type 2 diabetes mellitus with diabetic chronic kidney disease; N18.3 - Chronic kidney disease, stage 3 (moderate); 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
[2018-07-23 18:09] LABS: Basophils % 0.1 %; Eosinophils # 0.1 K/mcL (0.0-0.6); Eosinophils % 0.6 %; Hematocrit 25.5 % (35.3-44.9); Hemoglobin 8.1 g/dL (11.5-15.4); Immature Granulocytes % 0.8 % (0-4); Lymphocytes # 1.4 K/mcL (0.6-4.6); Lymphocytes % 11.6 %; Mean Corpuscular HGB Conc 31.8 g/dL (31.6-35.5); Mean Corpuscular Hemoglobin 30.2 pg (28.0-33.3); Mean Corpuscular Volume 95.1 fL (83.0-100.0); Mean Platelet Volume 10.7 fL (9.4-12.4); Monocytes # 0.4 K/mcL (0.0-1.3); Monocytes % 3.2 %; Neutrophils # 9.9 K/mcL (1.6-8.9); Platelet Count 229 K/mcL (140-400); Red Blood Count 2.68 M/mcL (3.82-4.97); Segmented Neutrophils % 83.7 %; White Blood Count 11.9 K/mcL (4.3-11.1)
[2018-07-23 18:24] LABS: % Iron Saturation 9 % (15-50); Iron 18 mcg/dL (50-170); Transferrin 145 mg/dL (203-362)
[2018-07-23 18:26] LABS: Estimated Average Glucose 137 mg/dl
--- NOTE | 2018-07-23 18:36 | Neurology Progress Note ---
Date of Encounter: 07/23/18 Time of Encounter: 14:00 Assessment and Plan (1) Acute CVA (cerebrovascular accident) Current Visit: Yes Status: Acute Patient developed small ischemic infarct at the right insula cortex and this could be secondary to small vessel disease or could be a small embolic event. TTE completed and per cardiology note no significant pathology was identified. Waiting for the formal report to display. Patient developed drop in her H+H and is still on heparin drip for DVT and CVA with close clinical monitoring. Treatment would ultimately depends whether there is active bleeding and would defer to medical team if anticoagulation needs to be temporarily held. Neurologically she seems to be stable and her mental status is improving. So would recommend continue Aspirin 81mg daily and Heparin drip with close clinical monitoring. She is essentially immobile and certainly needs DVT prophylaxix and she is already having one. Please continue medical and supportive care. Subjective Principal diagnosis: CVA weakness Interval history: Patient seen and examined. Patient is sleeping but easily arousable. Nursing staff reports that the patient appears more alert and responsive today than yesterday and i agree with the finding. Patient easily aroused and once awake she is able to communicate and does reports that she feels weak. It is known that the patient has dropped her H+H and is still on Heparin drip with close monitoring. Patient has left sided weakness and the left leg is externally rotated and unable to lift leg off the bed but she is able to wiggle her left toes. Left arm is spastic, consistent with residual neurological deficits from previous stroke. Overall speaking, her neurological status has been stable. Completed echocardiography, and no source of cardiac emboli identified. No significant regional wall motion abnormality. Objective - Constitutional Vitals: Temp Pulse Resp BP Pulse Ox 97.9 F 62 18 144/63 98 07/23/18 15:50 07/23/18 15:50 07/23/18 15:50 07/23/18 15:50 07/23/18 15:50 General appearance: Present: cooperative, A&O X 3, no acute distress, answers questions appropriately - Neurological Exam Sensorimotor examination: Present: intact (Grossly intact) Motor Examination: Present: other (Left leg is externally rotated. No color changes seen Able to wiggle her toes) Motor examination - right side: 5/5: deltoids, biceps, triceps, wrist flexion, wrist extension, behavioral scientist, hip flexors, tibialis Anterior, quadriceps, toe extension (EHL), plantarflexion Motor examination - left side: 3/5: wrist extension, hip flexors, quadriceps, 4/5: deltoids, biceps, triceps, wrist flexion, behavioral scientist, tibialis Anterior, toe extension (EHL), plantarflexion Sensation intact: Present: other (Gait not assessed) Reflexes: Biceps: 2+, Triceps: 2+, Brachioradialis: 2+ (elevated to the left), Patella: 0 (absent on the left knee and 1/4 to the right side), Achilles: 0 (absent on both sides) Mental Status Examination: Present: awake, alert, oriented to person, oriented to time, follows commands appropriately, answers questions appropriately Cranial nerve examination: Present: PERRL, EOMI, visual bailey intact, corneal reflexes brisk symmetrically, sensory to face intact, mastication intact, no facial asymmetry is present (Left facial droop noted), no dysarthria (Dysarthric. Language is fluent. Comprehensive), hearing is intact symmetrically, soft palate elevates bilaterally upon phonation, gag reflex int act, flexes SCM and trapezius muscles symmetrically with full power, tongue protrudes midline, no atrophy or facial fasiculations present Results - Laboratory Findings CBC and BMP: 07/23/18 17:50 07/23/18 01:15 Abnormal lab findings: Abnormal lab results WBC 11.9 K/mcL (4.3-11.1) H 07/23/18 17:50 RBC 2.68 M/mcL (3.82-4.97) L 07/23/18 17:50 Hgb 8.1 g/dL (11.5-15.4) L 07/23/18 17:50 Hct 25.5 % (35.3-44.9) L 07/23/18 17:50 RDW 19.0 % (11.5-14.5) H 07/23/18 17:50 9.9 K/mcL (1.6-8.9) H 07/23/18 17:50 Present (Not Present) A 07/22/18 03:30 1+ (Not Present) A 07/22/18 03:30 PT 15.3 Seconds (9.4-12.1) H 07/23/18 01:15 APTT > 360.0 Seconds (26.0-36.0) H* D 07/22/18 03:19 Heparin Anti-Xa, Unfract 0.25 IU/mL (0.30-0.70) L 07/23/18 15:52 Chloride 108 mEq/L (98-107) H 07/23/18 01:15 Carbon Dioxide 19 mEq/L (23-29) L 07/22/18 03:19 BUN 39 mg/dL (8-23) H 07/23/18 01:15 Est GFR ( Amer) 58 (> 60) L 07/23/18 01:15 Est GFR (Non-Af Amer) 48 (> 60) L 07/23/18 01:15 35 (6-26) H 07/23/18 01:15 Glucose 155 mg/dL (70-105) H 07/22/18 03:19 POC Glucose 64 mg/dL (70-99) L 07/23/18 05:27 6.4 % (-5.6) H 07/23/18 01:15 Calcium 7.4 mg/dL (8.6-10.3) L 07/23/18 01:15 Phosphorus 2.6 mg/dL (2.7-4.5) L 07/23/18 01:15 Magnesium 1.4 mg/dL (1.6-2.6) L 07/23/18 01:15 Iron 18 mcg/dL (50-170) L 07/23/18 15:58 % Saturation 9 % (15-50) L 07/23/18 15:58 145 mg/dL (203-362) L 07/23/18 15:58 2.8 mg/dL (0.3-1.0) H 07/23/18 01:15 AST 87 Units/L (13-39) H 07/23/18 01:15 ALT 86 Units/L (7-52) H 07/23/18 01:15 214 Units/L (34-104) H 07/23/18 01:15 0.08 ng/mL (< 0.04) H* 07/22/18 14:20 5.7 g/dL (6.4-8.9) L 07/23/18 01:15 2.5 g/dL (3.5-5.7) L 07/23/18 01:15 0.8 (1.1-2.2) L 07/23/18 01:15 Triglycerides 192 mg/dL (< 150) H 07/23/18 01:15 LDL Cholesterol, Calc 102 mg/dL (0-99) H 07/23/18 01:15 VLDL Cholesterol, Calc 38 mg/dL (< 31) H 07/23/18 01:15 5 mg/dL (40-59) L 07/23/18 01:15 29.0 (0-4.9) H 07/23/18 01:15 100 mg/dL (Neg-Trace) H 07/22/18 10:30 15 mg/dL (Negative) H 07/22/18 10:30 Moderate (Negative) H 07/22/18 10:30 Large (Negative) H 07/22/18 10:30 >=8.0 mg/dL (Normal) H 07/22/18 10:30 Ur Leukocyte Esterase Small (Negative) H 07/22/18 10:30 3-5 per hpf (0-3) H 07/22/18 10:30 5-15 per hpf (0-3) H 07/22/18 10:30 Few per hpf (None Seen) H 07/22/18 10:30 Ur Culture Indicated? YES (NO) A 07/22/18 10:30 Hepatitis A IgM Ab Reactive (Nonreactive) H 07/22/18 08:20 Hep B Core IgM Ab Reactive (Nonreactive) H 07/22/18 08:20 Crossmatch See Detail 07/22/18 04:33 Consult Discharge Plan - Plan Referrals: Andriy West MD [Primary Care Provider] - 08/01/18 10:30 am
[2018-07-23 18:42] LABS: Ferritin 523 ng/mL (10-120)
[2018-07-23 21:59] LABS: Hematocrit 24.9 % (35.3-44.9); Hemoglobin 8.2 g/dL (11.5-15.4)
[2018-07-24 01:33] LABS: Basophils % 0.1 %; Eosinophils # 0.1 K/mcL (0.0-0.6); Eosinophils % 1.3 %; Hematocrit 23.7 % (35.3-44.9); Hemoglobin 7.6 g/dL (11.5-15.4); Immature Granulocytes % 0.7 % (0-4); Lymphocytes # 1.6 K/mcL (0.6-4.6); Lymphocytes % 15.6 %; Mean Corpuscular HGB Conc 32.1 g/dL (31.6-35.5); Mean Corpuscular Hemoglobin 30.4 pg (28.0-33.3); Mean Corpuscular Volume 94.8 fL (83.0-100.0); Mean Platelet Volume 10.6 fL (9.4-12.4); Monocytes # 0.4 K/mcL (0.0-1.3); Monocytes % 4.1 %; Neutrophils # 8.2 K/mcL (1.6-8.9); Platelet Count 224 K/mcL (140-400); Red Cell Distribution Width 19.2 % (11.5-14.5); Segmented Neutrophils % 78.2 %; White Blood Count 10.5 K/mcL (4.3-11.1)
[2018-07-24 01:50] LABS: Alanine Aminotransferase 68 Units/L (7-52); Albumin 2.4 g/dL (3.5-5.7); Albumin/Globulin Ratio 0.8 (1.1-2.2); Alkaline Phosphatase 194 Units/L (34-104); Aspartate Amino Transferase 63 Units/L (13-39); BUN/Creatinine Ratio 47 (6-26); Bilirubin,Total 2.1 mg/dL (0.3-1.0); Blood Urea Nitrogen 37 mg/dL (8-23); Calcium 7.6 mg/dL (8.6-10.3); Carbon Dioxide 22 mEq/L (23-29); Chloride 110 mEq/L (98-107); Globulin 3.2 g/dL (2.4-3.5); Glucose 74 mg/dL (70-105); Magnesium 2.1 mg/dL (1.6-2.6); Osmolality,Calculated 295 (280-300); Phosphorous 2.3 mg/dL (2.7-4.5); Potassium 3.8 mEq/L (3.5-5.1); Sodium 139 mEq/L (136-145); Total Protein 5.6 g/dL (6.4-8.9); eGFR For African Americans > 60 (> 60); eGFR For Non-African Americans > 60 (> 60)
[2018-07-24] MEDS: Insulin LISPRO 300 UNITS/3 ML VIAL SQ SCH ×3 (05:51→16:22)
[2018-07-24] MEDS: Aspirin 81 MG TAB.CHEW PO SCH (07:34)
[2018-07-24] MEDS: Piperacillin/Tazobactam 3.375 GM in 0.9 % Sodium Chloride Mini Bag 100 ML IVPB SCH ×3 (07:35→23:21)
[2018-07-24] MEDS: Heparin 25,000 UNIT/250 ML D5W 25,000 UNIT/250 ML IV.SOLN IVC SCH ×3 (07:43→20:58)
[2018-07-24 07:52] LABS: Hematocrit 22.9 % (35.3-44.9); Hemoglobin 7.4 g/dL (11.5-15.4)
[2018-07-24] MEDS ORDERED: Aminoglycoside Consult 1 EACH MC ONE (08:21)
[2018-07-24 09:29] LABS: AFP Tumor Marker Non-Pregnant 3 ng/mL (0-9); F-Actin (sm muscle) Ab IgG 16 Units (0-19)
--- NOTE | 2018-07-24 09:42 | Internal Med Progress Note ---
Hospitalist Progress Note - Encounter Date of Encounter: 07/24/18 Time of Encounter: 09:41 - Subjective Interval History: Patient seen and examined this morning. Patient resting in bed and currently AAO x 3. Patient denies any shortness of breath or chest pain. Patient encouraged to get out of bed to chair with assistance. RN requested to assist the patient in getting out of bed. Patient willing to comply. Awaiting stool occult Awaiting hematology evaluation. Ten point ROS is negative except as listed above - Exam Vitals: Temp Pulse Resp BP Pulse Ox 97.8 F 60 18 143/64 98 07/24/18 07:13 07/24/18 07:52 07/24/18 07:13 07/24/18 07:13 07/24/18 07:13 Exam: General: No acute distress, AAO x 3, obese HEENT: EOMI, NC/AT, no scleral icterus Respiratory: Diminished breath sounds, no rales, equal air entry bilaterally, no wheezing Cardiovascular: Regular, Rate, Rhythm, No murmurs GI: Soft, Non tender, non distended, normal bowel sounds Ext: trace right LE edema, pitting LLE edema, no tenderness, positive pulses Neuro: awake and alert, left hemiparesis Rest of the clinical exam is noncontributory - Assessment and Plan (1) Diabetes mellitus Current Visit: No Status: Acute (2) CVA, old, 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 Acute change in mental status likely multifactorial-secondary to bacteremia-likely secondary to UTI; hepatitis A, and acute CVA mental status improved and back to baseline continue broad spectrum IV abx repeat blood cultures remain negative thus far urine culture pending 2. Acute CVA neurology evaluation appreciated diet adjusted as per speech therapist's recommendations awaiting carotid doppler PT eval recommending inpatient rehab continue aspirin and statin therapy 3. Elevated TNI cardiology input appreciated, cardiology signed off no acute intervention recommended 4. UTI continue IV abx f/u official urine culture report 5. Elevated transaminases likely secondary to Hepatitis A transaminases improving GI follow up requested continue supportive care 6. LE DVT hematology evaluation requested continue heparin drip at this time closely monitor H&H 7. Acute on chronic anemia stool occult negative: 07/22/18, will repeat study pt receiving One unit PRBC on 07/23/18, will monitor H&H closely as per hematology, pt is to continue on heparin drip. will transfuse to maintain hgb>7. If stool occult positive, hold heparin drip Will obtain surgery evaluation for EGD And colonoscopy if stool occult positive as no GI is available over the weekend iron studies, ferritin level consistent to anemia of chronic disease B12 and folate within normal range 8. Hypomagnesemia resolved continue to monitor electrolytes and replace as needed 9. DM type II sliding scale insulin algorithm monitor fingerstick and blood glucose ADA diet DVT ppx: restarting heparin drip Care plan discussed with patient/RN/consulting provider - Time Spent with Patient Total time spent is greater than 50% in coordination of care (as documented) at patient's floor/unit and/or counseling patient: Internal Medicine: Result - Labs CBC & Chem 7: 07/24/18 07:00 07/24/18 01:10 Labs: Short CBC 07/23/18 07/23/18 07/23/18 Range/Units 13:20 17:50 21:10 WBC 12.0 H 11.9 H (4.3-11.1) K/mcL Hgb 6.9 L 8.1 L 8.2 L (11.5-15.4) g/dL Hct 21.2 L 25.5 L 24.9 L (35.3-44.9) % Plt Count 231 229 (140-400) K/mcL Neutrophils # 10.0 H 9.9 H (1.6-8.9) K/mcL 07/24/18 07/24/18 Range/Units 01:10 07:00 WBC 10.5 (4.3-11.1) K/mcL Hgb 7.6 L 7.4 L (11.5-15.4) g/dL Hct 23.7 L 22.9 L (35.3-44.9) % Plt Count 224 (140-400) K/mcL Neutrophils # 8.2 (1.6-8.9) K/mcL BMP 07/24/18 01:10 Sodium 139 Potassium 3.8 Chloride 110 H Carbon Dioxide 22 L BUN 37 H Creatinine 0.78 Glucose 74 Calcium 7.6 L Liver Function 07/24/18 Range/Units 01:10 Total Bilirubin 2.1 H (0.3-1.0) mg/dL AST 63 H (13-39) Units/L ALT 68 H (7-52) Units/L Alkaline Phosphatase 194 H (34-104) Units/L Albumin 2.4 L (3.5-5.7) g/dL - ABG Interpretation ABG results: PT/INR, D-dimer PT 15.3 Seconds (9.4-12.1) H 07/23/18 01:15 Consult Discharge Plan - Plan Referrals: Andriy West MD [Primary Care Provider] - 08/01/18 10:30 am ___ (1) Diabetes mellitus Qualifiers: Diabetes mellitus type: type 2 Diabetes mellitus retirement insulin use: with retirement use Chronic kidney disease stage: stage 3 (moderate) (5) UTI (urinary tract infection) Qualifiers: Urinary tract infection type: site unspecified Hematuria presence: with hematuria Qualified Code(s): N39.0 - Urinary tract infection, site not specified; R31.9 - Hematuria, unspecified (6) Altered mental status Qualifiers: Altered mental status type: somnolence Qualified Code(s): R40.0 - Somnolence (8) Anemia Qualifiers: Anemia type: unspecified type Qualified Code(s): D64.9 - Anemia, unspecified
[2018-07-24 14:21] LABS: Hematocrit 22.5 % (35.3-44.9); Hemoglobin 7.3 g/dL (11.5-15.4)
--- NOTE | 2018-07-24 16:47 | Neurology Progress Note ---
Date of Encounter: 07/24/18 Time of Encounter: 13:00 Assessment and Plan (1) Acute CVA (cerebrovascular accident) Current Visit: Yes Status: Acute Patient developed small ischemic infarct at the right insula cortex and this could be secondary to small vessel disease or could be a small embolic event. TTE completed and per cardiology note no significant pathology was identified. Waiting for the formal report to display. Patient developed drop in her H+H and is still on heparin drip for DVT and CVA with close clinical monitoring. Treatment would ultimately depends whether there is active bleeding and would defer to medical team if anticoagulation needs to be temporarily held. Neurologically she seems to be stable and her mental status is improving. So would recommend continue Aspirin 81mg daily and Heparin drip with close clinical monitoring. She is essentially immobile and certainly needs DVT prophylaxix and she is already having one. Please continue medical and supportive care. Subjective Principal diagnosis: CVA weakness Interval history: Patient seen and examined. Patient appears more alert today and she states that she feels better, although the left side is still weak. She is no longer confused and can converse better. Denies neurological discomforts. She admits that she feels weak. Is in the process of evaluating blood loss. HCT and HGB are stable. Objective - Constitutional Vitals: Temp Pulse Resp BP Pulse Ox 98.1 F 62 18 131/56 97 07/24/18 16:15 07/24/18 16:15 07/24/18 16:15 07/24/18 16:15 07/24/18 16:15 General appearance: Present: cooperative, A&O X 3, no acute distress, answers questions appropriately - Neurological Exam Sensorimotor examination: Present: intact (Grossly intact) Motor Examination: Present: other (Left leg is externally rotated. No color faria ges seen Able to wiggle her toes) Motor examination - right side: 5/5: deltoids, biceps, triceps, wrist flexion, wrist extension, jukebox routeman, hip flexors, tibialis Anterior, quadriceps, toe extension (EHL), plantarflexion Motor examination - left side: 3/5: wrist extension, hip flexors, quadriceps, 4/5: deltoids, biceps, triceps, wrist flexion, jukebox routeman, tibialis Anterior, toe extension (EHL), plantarflexion Sensation intact: Present: other (Gait not assessed) Mental Status Examination: Present: awake, alert, oriented to person, oriented to time, follows commands appropriately, answers questions appropriately Cranial nerve examination: Present: PERRL, EOMI, visual bailey intact, corneal reflexes brisk symmetrically, sensory to face intact, mastication intact, no facial asymmetry is present (Left facial droop noted), no dysarthria (Dysarthric. Language is fluent. Comprehensive), hearing is intact symmetrically, soft palate elevates bilaterally upon phonation, gag reflex i ntact, flexes SCM and trapezius muscles symmetrically with full power, tongue protrudes midline, no atrophy or facial fasiculations present Results - Laboratory Findings CBC and BMP: 07/24/18 14:00 07/24/18 01:10 Abnormal lab findings: Abnormal lab results WBC 11.9 K/mcL (4.3-11.1) H 07/23/18 17:50 RBC 2.50 M/mcL (3.82-4.97) L 07/24/18 01:10 Hgb 7.3 g/dL (11.5-15.4) L 07/24/18 14:00 Hct 22.5 % (35.3-44.9) L 07/24/18 14:00 RDW 19.2 % (11.5-14.5) H 07/24/18 01:10 9.9 K/mcL (1.6-8.9) H 07/23/18 17:50 Present (Not Present) A 07/22/18 03:30 1+ (Not Present) A 07/22/18 03:30 PT 15.3 Seconds (9.4-12.1) H 07/23/18 01:15 APTT > 360.0 Seconds (26.0-36.0) H* D 07/22/18 03:19 Heparin Anti-Xa, Unfract 0.25 IU/mL (0.30-0.70) L 07/23/18 15:52 Chloride 110 mEq/L (98-107) H 07/24/18 01:10 Carbon Dioxide 22 mEq/L (23-29) L 07/24/18 01:10 BUN 37 mg/dL (8-23) H 07/24/18 01:10 Est GFR ( Amer) 58 (> 60) L 07/23/18 01:15 Est GFR (Non-Af Amer) 48 (> 60) L 07/23/18 01:15 47 (6-26) H 07/24/18 01:10 Glucose 155 mg/dL (70-105) H 07/22/18 03:19 POC Glucose 102 mg/dL (70-99) H 07/24/18 07:31 6.4 % (-5.6) H 07/23/18 01:15 Calcium 7.6 mg/dL (8.6-10.3) L 07/24/18 01:10 Phosphorus 2.3 mg/dL (2.7-4.5) L 07/24/18 01:10 Magnesium 1.4 mg/dL (1.6-2.6) L 07/23/18 01:15 Iron 18 mcg/dL (50-170) L 07/23/18 15:58 % Saturation 9 % (15-50) L 07/23/18 15:58 145 mg/dL (203-362) L 07/23/18 15:58 523 ng/mL (10-120) H 07/23/18 15:58 2.1 mg/dL (0.3-1.0) H 07/24/18 01:10 AST 63 Units/L (13-39) H 07/24/18 01:10 ALT 68 Units/L (7-52) H 07/24/18 01:10 194 Units/L (34-104) H 07/24/18 01:10 0.08 ng/mL (< 0.04) H* 07/22/18 14:20 5.6 g/dL (6.4-8.9) L 07/24/18 01:10 2.4 g/dL (3.5-5.7) L 07/24/18 01:10 0.8 (1.1-2.2) L 07/24/18 01:10 Triglycerides 192 mg/dL (< 150) H 07/23/18 01:15 LDL Cholesterol, Calc 102 mg/dL (0-99) H 07/23/18 01:15 VLDL Cholesterol, Calc 38 mg/dL (< 31) H 07/23/18 01:15 5 mg/dL (40-59) L 07/23/18 01:15 29.0 (0-4.9) H 07/23/18 01:15 100 mg/dL (Neg-Trace) H 07/22/18 10:30 15 mg/dL (Negative) H 07/22/18 10:30 Moderate (Negative) H 07/22/18 10:30 Large (Negative) H 07/22/18 10:30 >=8.0 mg/dL (Normal) H 07/22/18 10:30 Ur Leukocyte Esterase Small (Negative) H 07/22/18 10:30 3-5 per hpf (0-3) H 07/22/18 10:30 5-15 per hpf (0-3) H 07/22/18 10:30 Few per hpf (None Seen) H 07/22/18 10:30 Ur Culture Indicated? YES (NO) A 07/22/18 10:30 Hepatitis A IgM Ab Reactive (Nonreactive) H 07/22/18 08:20 Hep B Core IgM Ab Reactive (Nonreactive) H 07/22/18 08:20 Crossmatch See Detail 07/22/18 04:33 Consult Discharge Plan - Plan Referrals: Andriy West MD [Primary Care Provider] - 08/01/18 10:30 am
[2018-07-24 20:43] LABS: Hemoglobin 7.8 g/dL (11.5-15.4)
[2018-07-25] MEDS: Insulin LISPRO 300 UNITS/3 ML VIAL SQ SCH ×4 (01:00→20:48)
[2018-07-25 03:48] LABS: Basophils % 0.3 %; Eosinophils # 0.2 K/mcL (0.0-0.6); Eosinophils % 2.9 %; Hematocrit 21.4 % (35.3-44.9); Hemoglobin 7.1 g/dL (11.5-15.4); Immature Granulocytes % 0.6 % (0-4); Lymphocytes # 1.6 K/mcL (0.6-4.6); Lymphocytes % 25.1 %; Mean Corpuscular HGB Conc 33.2 g/dL (31.6-35.5); Mean Corpuscular Hemoglobin 31.1 pg (28.0-33.3); Mean Corpuscular Volume 93.9 fL (83.0-100.0); Mean Platelet Volume 10.7 fL (9.4-12.4); Monocytes # 0.4 K/mcL (0.0-1.3); Monocytes % 6.5 %; Neutrophils # 4.1 K/mcL (1.6-8.9); Platelet Count 199 K/mcL (140-400); Red Blood Count 2.28 M/mcL (3.82-4.97); Red Cell Distribution Width 19.2 % (11.5-14.5); Segmented Neutrophils % 64.6 %; White Blood Count 6.3 K/mcL (4.3-11.1)
[2018-07-25 04:07] LABS: Alanine Aminotransferase 49 Units/L (7-52); Albumin 2.2 g/dL (3.5-5.7); Alkaline Phosphatase 168 Units/L (34-104); Aspartate Amino Transferase 41 Units/L (13-39); BUN/Creatinine Ratio 45 (6-26); Bilirubin,Total 1.7 mg/dL (0.3-1.0); Blood Urea Nitrogen 28 mg/dL (8-23); Calcium 7.5 mg/dL (8.6-10.3); Carbon Dioxide 21 mEq/L (23-29); Chloride 111 mEq/L (98-107); Glucose 215 mg/dL (70-105); Osmolality,Calculated 302 (280-300); Phosphorous 1.9 mg/dL (2.7-4.5); Potassium 3.9 mEq/L (3.5-5.1); Sodium 140 mEq/L (136-145); Total Protein 5.3 g/dL (6.4-8.9); eGFR For African Americans > 60 (> 60); eGFR For Non-African Americans > 60 (> 60)
[2018-07-25 04:08] LABS: Albumin/Globulin Ratio 0.7 (1.1-2.2); Globulin 3.1 g/dL (2.4-3.5)
[2018-07-25] MEDS: Heparin 25,000 UNIT/250 ML D5W 25,000 UNIT/250 ML IV.SOLN IVC SCH ×2 (05:42→11:57)
[2018-07-25] MEDS: Piperacillin/Tazobactam 3.375 GM in 0.9 % Sodium Chloride Mini Bag 100 ML IVPB SCH ×2 (08:01→15:51)
[2018-07-25] MEDS: Aspirin 81 MG TAB.CHEW PO SCH (08:02)
[2018-07-25] MEDS: *HR* HYDROcodone/Acet 5/325 mg TABLET PO PRN (08:10)
--- NOTE | 2018-07-25 08:54 | Internal Med Progress Note ---
Hospitalist Progress Note - Encounter Date of Encounter: 07/25/18 Time of Encounter: 08:54 - Subjective Interval History: Patient seen and examined at bedside. Resting in bed and states she slept well overnight. Noted to be hypertensive this morning but denies any headache, lightheadedness, chest pain, or shortness of breath. No overnight events reported. Ten point ROS is negative except as listed above - Exam Vitals: Temp Pulse Resp BP Pulse Ox 98.0 F 54 16 176/73 98 07/25/18 07:26 07/25/18 07:26 07/25/18 07:26 07/25/18 07:26 07/25/18 07:26 Exam: General: No acute distress, AAO x 3, obese HEENT: EOMI, NC/AT, no scleral icterus Respiratory: Diminished breath sounds, no rales, equal air entry bilaterally, no wheezing Cardiovascular: Regular, Rate, Rhythm, No murmurs GI: Soft, Non tender, non distended, normal bowel sounds Ext: trace right LE edema, pitting LLE edema, no tenderness, positive pulses Neuro: awake and alert, left hemiparesis Rest of the clinical exam is noncontributory - Assessment and Plan (1) Diabetes mellitus Current Visit: No Status: Acute (2) CVA, old, 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 Acute change in mental status likely multifactorial-secondary to bacteremia-likely secondary to UTI; hepatitis A, and acute CVA mental status improved and back to baseline continue IV zosyn and d/c IV vancomycin repeat blood cultures remain negative thus far urine culture reported no growth 2. Acute CVA neurology evaluation appreciated diet adjusted as per speech therapist's recommendations carotid doppler preliminary report: normal with nonstenotic plaque in the right bifurcation, left prox, mid, and distal CCA and bifurcation. Will f/u official report PT eval recommending inpatient rehab continue aspirin and statin therapy 3. Elevated TNI cardiology input appreciated, cardiology signed off no acute intervention recommended 4. UTI continue IV abx urine culture reported no grwoth 5. Elevated transaminases likely secondary to Hepatitis A transaminases improving GI follow up requested continue supportive care 6. LE DVT hematology evaluation requested continue heparin drip at this time closely monitor H&H 7. Acute on chronic anemia stool occult negative: 07/22/18, will repeat study pt receiving One unit PRBC on 07/23/18, will monitor H&H closely as per hematology, pt is to continue on heparin drip. will transfuse to maintain hgb>7. If stool occult positive, hold heparin drip GI evaluation requested given persistent drop in H&H. Pt will benefit from EGD and colonoscopy to rule out acute bleed, as patient needs to be on residential anticoagulation. iron studies, ferritin level consistent to anemia of chronic disease B12 and folate within normal range Hematology evaluation has been requested Repeat H&H and will transfuse for Hgb<7 8. Hypophosphatemia Phos supplemented continue to monitor electrolytes and replace as needed 9. DM type II sliding scale insulin algorithm, increased to medium dose SS monitor fingerstick and blood glucose ADA diet 10. HTN noted to be hypertensive this morning will restart home dose of Lisinopril closely monitor BP DVT ppx: restarting heparin drip Care plan discussed with patient/RN/consulting provider/pharmacist/case management - Time Spent with Patient Total time spent is greater than 50% in coordination of care (as documented) at patient's floor/unit and/or counseling patient: Internal Medicine: Result - Labs CBC & Chem 7: 07/25/18 03:35 07/25/18 03:35 Labs: Short CBC 07/24/18 07/24/18 07/25/18 Range/Units 14:00 20:16 03:35 WBC 6.3 (4.3-11.1) K/mcL Hgb 7.3 L 7.8 L 7.1 L (11.5-15.4) g/dL Hct 22.5 L 24.0 L 21.4 L (35.3-44.9) % Plt Count 199 (140-400) K/mcL Neutrophils # 4.1 (1.6-8.9) K/mcL BMP 07/25/18 03:35 Sodium 140 Potassium 3.9 Chloride 111 H Carbon Dioxide 21 L BUN 28 H Creatinine 0.62 Glucose 215 H Calcium 7.5 L Liver Function 07/25/18 Range/Units 03:35 Total Bilirubin 1.7 H (0.3-1.0) mg/dL AST 41 H (13-39) Units/L ALT 49 (7-52) Units/L Alkaline Phosphatase 168 H (34-104) Units/L Albumin 2.2 L (3.5-5.7) g/dL - ABG Interpretation ABG results: PT/INR, D-dimer PT 15.3 Seconds (9.4-12.1) H 07/23/18 01:15 Consult Discharge Plan - Plan Referrals: Andriy West MD [Primary Care Provider] - 08/01/18 10:30 am ___ (1) Diabetes mellitus Qualifiers: Diabetes mellitus type: type 2 Diabetes mellitus residential insulin use: with residential use Chronic kidney disease stage: stage 3 (moderate) (5) UTI (urinary tract infection) Qualifiers: Urinary tract infection type: site unspecified Hematuria presence: with hematuria Qualified Code(s): N39.0 - Urinary tract infection, site not specified; R31.9 - Hematuria, unspecified (6) Altered mental status Qualifiers: Altered mental status type: somnolence Qualified Code(s): R40.0 - Somnolence (8) Anemia Qualifiers: Anemia type: unspecified type Qualified Code(s): D64.9 - Anemia, unspecified
[2018-07-25] MEDS ORDERED: Insulin LISPRO 300 UNITS/3 ML VIAL SQ SCH (09:01)
[2018-07-25 09:20] LABS: Hematocrit 22.7 % (35.3-44.9); Hemoglobin 7.3 g/dL (11.5-15.4)
[2018-07-25 09:42] LABS: Myeloperoxidase Ab 0 AU/mL (0-19); Serine Protease-3 Antibody 1 AU/mL (0-19)
[2018-07-25 09:43] LABS: ANA IgG by ELISA NONE DETECTED (None Detected)
[2018-07-25] MEDS: Lisinopril 20 MG TABLET PO SCH (09:59)
--- NOTE | 2018-07-25 12:48 | Gastroenterology Progress Note ---
Date of Encounter: 07/25/18 Time of Encounter: 10:15 - Assessment and plan (1) Hepatitis A Current Visit: Yes Status: Acute Assessment and plan: On 07/19 total bili 2.4, AST 64, AT 122, and alk phos 230. Today total bili 1.7, AST 41, ALT 49, and alk phos 168. Hepatitis A positive. Full clinical and biochemical recovery is observed within two to three months in 85 percent of patients, and complete recovery is observed by six months in nearly all patients. HAV infection does not become chronic, and individuals cannot become reinfected after recovering from infection. Up to 10 percent of patients experience a relapse of symptoms during the six months after acute illness. The duration of clinical relapse is generally less than three weeks, although biochemical relapse may last as long as 12 months. HAV can be recovered from stool during relapse episodes, so such patients should be considered infectious. - HAV infection is usually a self-limited illness. - Fulminant hepatic failure occurs in less than 1 percent of cases. - Infection confers lifelong immunity. - Handwashing (including after using the bathroom, changing diapers, and before preparing or eating foods). - Heating foods appropriately (the virus can be inactivated by heating to >185 F for one minute). Cooked foods can transmit HAV if the temperature during food preparation is inadequate to kill the virus or if food is contaminated after cooking. - Chlorine, iodine, and disinfecting solutions (household bleach 1:100 dilution) are effective for inactivation of HAV. Qualifiers: Hepatic coma status: without hepatic coma Qualified Code(s): B15.9 - Hepatitis A without hepatic coma (2) Anemia Current Visit: Yes Status: Acute Assessment and plan: Hgb dropped to 6.6 on 07/23/18 and this morning Hgb 7.1. Rule out hemolysis. Check recheck, haptoglobin, LDH, and peripheral smear. Qualifiers: Anemia type: unspecified type Qualified Code(s): D64.9 - Anemia, unspecified (3) Elevated liver enzymes Current Visit: Yes Status: Acute Assessment and plan: Secondary to hepatitis A. CT A/P at [facility] with no acute abnormality. Liver US with normal CBD and fatty liver. MRCP with 2 small stones in the CBD up to 4 mm without biliary dilation. Likely that stones will pass without intervention, no need for ERCP. - Time Spent With Patient Total time spent is greater than 50% in coordination of care (as documented) at patient's floor/unit and/or counseling patient: - Subjective Interval history: Patient awake and alert this morning. She denies any bleeding, melena, hematochezia, hematemesis, or coffee-ground emesis. Hgb dropped to 6.6 on and this morning Hgb 7.1. - Constitutional Vitals: Temp Pulse Resp BP Pulse Ox 98.0 F 56 16 141/96 97 07/25/18 11:17 07/25/18 11:17 07/25/18 11:17 07/25/18 11:17 07/25/18 11:17 General appearance: Present: cooperative, A&O X 3, no acute distress, answers questions appropriately - Head Head exam: Present: atraumatic, normocephalic - Eye Eye exam: Present: normal appearance, sclera anicteric - ENT ENT exam: Present: mucous membranes moist - Neck Neck exam general surgery: Present: normal inspection, trachea midline - Respiratory Respiratory exam: Present: decreased breath sounds, CTAB. Absent: rales, rh onchi - Cardiovascular Cardiovascular exam: Present: RRR, +S1, +S2 - GI/Abdominal GI/Abdominal exam: Present: soft, no peritoneal signs. Absent: distended, firm, guarding, tenderness - Rectal Rectal exam: Present: deferred - Extremities Exam Extremities exam: Present: warm - Neurological Exam Neurological exam: Present: no focal deficits - Psychiatric Psychiatric exam: Present: normal affect, normal mood - Skin Skin exam: Present: dry, intact, normal color, warm Results - Labs CBC & Chem 7: 07/25/18 09:07 07/25/18 03:35 Labs: Last Result 07/25/18 03:35 Calcium 7.5 L Entire Visit 07/25/18 07/25/18 07/25/18 03:35 03:35 09:07 Hgb 7.1 L 7.3 L Hct 21.4 L 22.7 L Total Bilirubin 1.7 H AST 41 H ALT 49 - ABG ABG results: PT/INR, D-dimer PT 15.3 Seconds (9.4-12.1) H 07/23/18 01:15 Consult Discharge Plan - Plan Referrals: Andriy West MD [Primary Care Provider] - 08/01/18 10:30 am
--- NOTE | 2018-07-25 14:41 | Oncology Inp Consult Note ---
Date of Encounter: 07/25/18 Time of Encounter: 14:38 - Data of Consult Requesting Physician: Clarita Waters MD Primary Care Provider: Andriy West MD - Consult Narrative Reason for consult: LLE DVT History of present illness: Assessment: 1. LLE DVT 2. Iron deficiency anemia 3. Elevated liver enzymes likely 2/2 to underlying Hep A and suspected Hep B infection (core IgM positive) 4. DM2 5. H/o right sided CVA in 2010 6. Bacteremia; blood cultures positive for Klebsiella pneumoniae and E. Coli Plan: -Continue on Heparin gtt in light of acute LLE DVT. Plts 199 this am. -Please continue to monitor H/H closely (at least q12h). Transfuse 1 unit of PRBCs for Hgb < 7.0 -Fe 18, % sat 9, transferrin 145, ferritin 523; administer venofer 300 mg IV x 1. -Folic acid 6.5, start on folic acid 1 mg PO daily. -Please check B12 level, LDH, reticulocyte count, blood smear, and haptoglobin -GI c/s appreciated recommendations. FOBT negative but may need EGD/Colonoscopy if H/H continues to decline especially with iron deficiency. -Please check MM labs: SPEP, ERIN, serum FLCs, UPEP Thanks for the consult! We will continue to follow along with you. HPI: The patient is a 72 yo WF who was admitted for AMS. She has a h/o DVTs and was on SQ lovenox BID prior to admission for therapeutic anticoagulation. We have been c/s to assist her anticoagulation management and evaluate her anemia. The patient today states she is doing okay, and denies any fevers, chills, chest pain, SOB, or N/V/D. ROS: 12 point ROS performed. Pertinent positives in HPI. PE: GEN: AAO x 3, in NAD HEENT: NC/AT, PERRLA, EOMI, MMM CV: RRR, no MRGs LUNGS: Decreased BS b/l with no w/r/r ABD: Soft, obese, NT, ND, +BS EXT: No cyanosis or clubbing. 1-2+ pitting edema in LEs b/l. Neuro: Left sided hemiparesis from CVA in 2010. No other focal deficits appreciated at this time. Past Med Surg Social Fam HX - Past Medical History Medical history: COPD, CVA, diabetes, GERD, hyperlipidemia, hypertension, renal disease, other Additional medical history: CVA X3 Psychiatric history: no psych history - Past Surgical History Surgical History: cholecystectomy, other Additional surgical history: Tubal Ligation - Social History Smoking Status: Former smoker Smokeless Tobacco Status: No Alcohol use: none Drug use: none Medications and Allergies Docusate [Colace] 100 mg PO BID 10/17/16 [History] Glimepiride [Amaryl] 1 mg PO DAILY 10/17/16 [History] Lisinopril [Zestril] 40 mg PO DAILY 10/17/16 [History] Omeprazole [PriLOSEC] 20 mg PO DAILY 10/17/16 [History] metFORMIN [Glucophage] 250 mg PO DAILY 10/17/16 [History] Atorvastatin [Lipitor] 40 mg PO HS 07/19/18 [History] Promethazine [Phenergan] 25 mg PO BID 07/19/18 [History] Glimepiride [Amaryl] 2 mg PO DAILY 07/22/18 [History] Allergy/AdvReac Type Severity Reaction Status Date / Time No Known Allergies Allergy Verified 07/22/18 19:40 Oncology Inpatient Results Labs: 07/13/16 07/22/18 07/23/18 07:55 12:25 15:58 WBC RBC Hgb Hct MCV MCH MCHC RDW Plt Count MPV Immature Gran % Seg Neutrophils % Lymphocytes % Monocytes % Eosinophils % Basophils % Neutrophils # Lymphocytes # Monocytes # Eosinophils # Basophils # Sodium Potassium Chloride Carbon Dioxide BUN Creatinine Est GFR ( Amer) Est GFR (Non-Af Amer) BUN/Creatinine Ratio Glucose Calculated Osmolality Calcium Phosphorus Magnesium Iron 18 L % Saturation 9 L Transferrin 145 L Ferritin 523 H Total Bilirubin AST ALT Alkaline Phosphatase Serum Total Protein Albumin Globulin Albumin/Globulin Ratio Vitamin B12 579 Folate 6.5 07/25/18 07/25/18 03:35 03:35 WBC 6.3 RBC 2.28 L Hgb 7.1 L Hct 21.4 L MCV 93.9 MCH 31.1 MCHC 33.2 RDW 19.2 H Plt Count 199 MPV 10.7 Immature Gran % 0.6 Seg Neutrophils % 64.6 Lymphocytes % 25.1 Monocytes % 6.5 Eosinophils % 2.9 Basophils % 0.3 Neutrophils # 4.1 Lymphocytes # 1.6 Monocytes # 0.4 Eosinophils # 0.2 Basophils # 0.0 Sodium 140 Potassium 3.9 Chloride 111 H Carbon Dioxide 21 L BUN 28 H Creatinine 0.62 Est GFR ( Amer) > 60 Est GFR (Non-Af Amer) > 60 BUN/Creatinine Ratio 45 H Glucose 215 H Calculated Osmolality 302 H Calcium 7.5 L Phosphorus 1.9 L Magnesium 2.0 Iron % Saturation Transferrin Ferritin Total Bilirubin 1.7 H AST 41 H ALT 49 Alkaline Phosphatase 168 H Serum Total Protein 5.3 L Albumin 2.2 L Globulin 3.1 Albumin/Globulin Ratio 0.7 L Vitamin B12 Folate Imaging: MR/MR abdomen wo con 07/22/18 IMPRESSION: Status post cholecystectomy. Two small stones in the common bile duct measuring up to 4 mm in size without significant biliary ductal dilatation. Unremarkable appearance of the pancreatic duct. Mild hepatic steatosis. MR/MR head/brain wo con 07/22/18 IMPRESSION: 1. Punctate lacunar infarction in the right subinsular white matter. No associated hemorrhage. 2. Parenchymal volume loss and sequela of chronic microvascular ischemic changes and old infarctions. Venous Duplex Results 07/19/18: Impressions: Lower extremity abnormal deep exam: left iliac through femoral vein demonstrates acute thrombosis. Right lower extremity: normal contralateral exam. Right: Venous imaging of the lower extremity reveals full patency and normal vessel compressibility of the right common femoral. Doppler signals in the evaluated veins were normal. Left: The left distal iliac demonstrates a compressible vein. Flow was continuous and it did not augment. The left common femoral demonstrates a partially compressible vein. Flow was continuous and it did not augment. The left proximal superficial femoral demonstrates a partially compressible vein. Flow was continuous and it did not augment. The left great saphenous above knee demonstrates a compressible vein. Flow was continuous and it did augment. The left mid superficial femoral, left distal superficial femoral, left popliteal, left posterior Consult Discharge Plan - Plan Referrals: Andriy West MD [Primary Care Provider] - 08/01/18 10:30 am Inpatient Charges Provider: Dr. Dariel Marie Consult - Inpatient: [id number]
[2018-07-25 15:32] LABS: Immature Reticulocyte % 19.3 % (11.0-38.0); Retculocyte # 0.11 M/mcL (0.05-0.10)
[2018-07-25 15:40] LABS: Reticulocyte % 4.4 % (1.6-2.8)
[2018-07-26] MEDS: Piperacillin/Tazobactam 3.375 GM in 0.9 % Sodium Chloride Mini Bag 100 ML IVPB SCH ×3 (00:18→15:32)
[2018-07-26 06:00] LABS: Basophils % 0.3 %; Eosinophils # 0.2 K/mcL (0.0-0.6); Hematocrit 24.1 % (35.3-44.9); Hemoglobin 7.8 g/dL (11.5-15.4); Immature Granulocytes % 2.1 % (0-4); Lymphocytes # 2.3 K/mcL (0.6-4.6); Lymphocytes % 34.2 %; Mean Corpuscular HGB Conc 32.4 g/dL (31.6-35.5); Mean Corpuscular Volume 95.6 fL (83.0-100.0); Mean Platelet Volume 10.5 fL (9.4-12.4); Monocytes # 0.5 K/mcL (0.0-1.3); Monocytes % 8.2 %; Neutrophils # 3.4 K/mcL (1.6-8.9); Platelet Count 242 K/mcL (140-400); Red Blood Count 2.52 M/mcL (3.82-4.97); Red Cell Distribution Width 18.7 % (11.5-14.5); Segmented Neutrophils % 52.2 %; White Blood Count 6.6 K/mcL (4.3-11.1)
[2018-07-26 06:17] LABS: Alanine Aminotransferase 42 Units/L (7-52); Albumin 2.6 g/dL (3.5-5.7); Albumin/Globulin Ratio 0.7 (1.1-2.2); Alkaline Phosphatase 183 Units/L (34-104); Aspartate Amino Transferase 30 Units/L (13-39); BUN/Creatinine Ratio 37 (6-26); Bilirubin,Total 1.5 mg/dL (0.3-1.0); Blood Urea Nitrogen 21 mg/dL (8-23); Carbon Dioxide 23 mEq/L (23-29); Chloride 109 mEq/L (98-107); Globulin 3.5 g/dL (2.4-3.5); Glucose 147 mg/dL (70-105); Magnesium 1.9 mg/dL (1.6-2.6); Osmolality,Calculated 296 (280-300); Phosphorous 2.7 mg/dL (2.7-4.5); Potassium 3.9 mEq/L (3.5-5.1); Sodium 140 mEq/L (136-145); Total Protein 6.1 g/dL (6.4-8.9); eGFR For African Americans > 60 (> 60); eGFR For Non-African Americans > 60 (> 60)
[2018-07-26] MEDS: Lisinopril 20 MG TABLET PO SCH (08:44)
[2018-07-26] MEDS: Aspirin 81 MG TAB.CHEW PO SCH (08:44)
[2018-07-26] MEDS: Insulin LISPRO 300 UNITS/3 ML VIAL SQ SCH ×4 (08:45→22:49)
--- NOTE | 2018-07-26 09:16 | Internal Med Progress Note ---
Hospitalist Progress Note - Encounter Date of Encounter: 07/26/18 Time of Encounter: 09:09 ( ) - Subjective Interval History: Patient seen and examined earlier this morning Resting in bed, eating breakfast. Pt is requiring four people to get out of bed to chair. She denies any shortness of breath or chest pain. No overnight events reported. Ten point ROS is negative except as listed above - Exam Vitals: Temp Pulse Resp BP Pulse Ox 98.1 F 61 18 148/63 97 07/26/18 07:28 07/26/18 07:28 07/26/18 07:28 07/26/18 07:28 07/26/18 07:28 Exam: General: No acute distress, AAO x 3, obese HEENT: EOMI, NC/AT, no scleral icterus Respiratory: Diminished breath sounds, no rales, equal air entry bilaterally, no wheezing Cardiovascular: Regular, Rate, Rhythm, No murmurs GI: Soft, Non tender, non distended, normal bowel sounds Ext: trace right LE edema, pitting LLE edema, no tenderness, positive pulses Neuro: awake and alert, left hemiparesis Rest of the clinical exam is noncontributory - Assessment and Plan (1) Diabetes mellitus Current Visit: No Status: Acute (2) CVA, old, 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 Acute change in mental status likely multifactorial-secondary to bacteremia-likely secondary to UTI; hepatitis A, and acute CVA mental status improved and back to baseline continue IV zosyn repeat blood cultures remain negative thus far urine culture reported no growth 2. Acute CVA neurology evaluation appreciated diet adjusted as per speech therapist's recommendations carotid doppler preliminary report: normal with nonstenotic plaque in the right bifurcation, left prox, mid, and distal CCA and bifurcation. Will f/u official report PT eval recommending inpatient rehab continue aspirin and statin therapy 3. Elevated TNI cardiology input appreciated, cardiology signed off no acute intervention recommended 4. UTI continue IV abx urine culture reported no growth 5. Elevated transaminases likely secondary to Hepatitis A transaminases wnl continue supportive care 6. LE DVT hematology on board continue management as per hematology continue heparin drip at this time closely monitor H&H 7. Acute on chronic anemia stool occult negative: 07/22/18, will repeat study pt receiving One unit PRBC on 07/23/18, will monitor H&H closely as per hematology, pt is to continue on heparin drip. will transfuse to maintain hgb>7. If stool occult positive, hold heparin drip GI evaluation appreciated will f/u with GI in regards to EGD and colonoscopy to rule out acute bleed, as patient needs to be on intermediate card tender anticoagulation. iron studies, ferritin level consistent to anemia of chronic disease B12 and folate within normal range continue management as per hematology 8. Hypophosphatemia resolved continue to monitor electrolytes and replace as needed 9. DM type II sliding scale insulin algorithm, increased to medium dose SS monitor fingerstick and blood glucose ADA diet 10. HTN BP within acceptable range continue home meds closely monitor BP DVT ppx: on heparin drip Care plan discussed with patient/RN/consulting provider/pharmacist/case management - Time Spent with Patient Total time spent is greater than 50% in coordination of care (as documented) at patient's floor/unit and/or counseling patient: Internal Medicine: Result - Labs CBC & Chem 7: 07/26/18 05:30 07/26/18 05:30 Labs: Short CBC 07/25/18 07/26/18 Range/Units 09:07 05:30 WBC 6.6 (4.3-11.1) K/mcL Hgb 7.3 L 7.8 L (11.5-15.4) g/dL Hct 22.7 L 24.1 L (35.3-44.9) % Plt Count 242 (140-400) K/mcL Neutrophils # 3.4 (1.6-8.9) K/mcL BMP 07/26/18 05:30 Sodium 140 Potassium 3.9 Chloride 109 H Carbon Dioxide 23 BUN 21 Creatinine 0.57 L Glucose 147 H Calcium 8.0 L Liver Function 07/26/18 Range/Units 05:30 Total Bilirubin 1.5 H (0.3-1.0) mg/dL AST 30 (13-39) Units/L ALT 42 (7-52) Units/L Alkaline Phosphatase 183 H (34-104) Units/L Albumin 2.6 L (3.5-5.7) g/dL - ABG Interpretation ABG results: PT/INR, D-dimer PT 15.3 Seconds (9.4-12.1) H 07/23/18 01:15 Consult Discharge Plan - Plan Referrals: Andriy West MD [Primary Care Provider] - 08/01/18 10:30 am (1) Diabetes mellitus Qualifiers: Diabetes mellitus type: type 2 Diabetes mellitus intermediate card tender insulin use: with intermediate card tender use Chronic kidney disease stage: stage 3 (moderate) (5) UTI (urinary tract infection) Qualifiers: Urinary tract infection type: site unspecified Hematuria presence: with hematuria Qualified Code(s): N39.0 - Urinary tract infection, site not specified; R31.9 - Hematuria, unspecified (6) Altered mental status Qualifiers: Altered mental status type: somnolence Qualified Code(s): R40.0 - Somnolence (8) Anemia Qualifiers: Anemia type: unspecified type Qualified Code(s): D64.9 - Anemia, unspecified
--- NOTE | 2018-07-26 09:33 | Oncology Inp Progress Note ---
<Yocasta Pope - Last Filed: 07/26/18 09:38> Date of Encounter: 07/26/18 Time of Encounter: 09:05 (1) Acute deep vein thrombosis (DVT) of iliac vein of left lower extremity Current Visit: No Status: Acute Assessment and plan: Assessment: 1. LLE DVT Plan: -Continue on Heparin gtt in light of acute LLE DVT. Plts 242. -Please continue to monitor H/H closely (at least q12h). Transfuse 1 unit of PRBCs for Hgb < 7.0 Hgb 7.8 this morning. (2) Anemia Current Visit: Yes Status: Acute Assessment and plan: 2. Iron deficiency anemia Fe 18, % sat 9, transferrin 145, ferritin 523; administer venofer 300 mg IV x 1. Folic acid 6.5, start on folic acid 1 mg PO daily. Please check B12 level, LDH, reticulocyte count, blood smear, and haptoglobin GI c/s appreciated recommendations. FOBT negative but may need EGD/Colonoscopy if H/H continues to decline especially with iron deficiency. Please check MM labs: SPEP, ERIN, serum FLCs, UPEP Qualifiers: Anemia type: unspecified type Qualified Code(s): D64.9 - Anemia, unspecified (3) Elevated liver enzymes Current Visit: Yes Status: Acute Assessment and plan: 3. Elevated liver enzymes likely 2/2 to underlying Hep A and suspected Hep B infection (core IgM positive) Oncology: Subj Interval history: Kya is awake and alert in bed this morning. She notes that she is doing ok. She denies fever or chills. She denies nausea, vomiting, diarrhea, or abdominal pain. She does c/o constipation. She states that she has had a blood clot in her LLE since 2016 and has been taking Eliquis twice per day. Kya states that she has taken multiple medications for anticoagulation since 2016, but all have caused her abnormal vaginal bleeding, except Eliquis. She denies bleeding with Heparin drip. - Additional findings Additional findings: General: Alert and oriented, fatigued appearing. Mental Status: Affect appropriate for circumstances Skin: No rashes or petechiae. Pale. Lungs: Clear to auscultation. Cardiovascular: Regular rate and rhythm. No gallops, murmurs, or rubs. Abdomen: Soft, nontender; no organomegaly or masses palpable. Extremities: Left lower extremity edema> right. Neurologic: Alert. Oncology: Obj Data - Labs CBC & Chem 7: 07/26/18 05:30 07/26/18 05:30 Consult Discharge Plan - Plan Referrals: Andriy West MD [Primary Care Provider] - 08/01/18 10:30 am <Rickie Marie - Last Filed: 07/26/18 15:30> Date of Encounter: 07/26/18 Oncology: Obj Data - Labs CBC & Chem 7: 07/26/18 05:30 07/26/18 05:30 Inpatient Charges Provider: Dr. Dariel Marie Follow up - Inpatient: [id number] - Attending Attestation I examined this patient and my medical decision-making was reviewed with the Advanced Practice Nurse. I agree with the documented findings, disposition and treatment plan as described except to the extent set forth below. -Receiving IV Venofer 300 mg today -Remains on Heparin gtt. H/H improved. Plts 242. -Labs pending. -Okay to d/c on lovenox SQ BID for therapeutic anticoagulation once medically stable -On Zosyn as well for antibiotic coverage.
[2018-07-26] MEDS: *HR* OxyCODONE Immed Rel 5 MG TABLET PO PRN (13:04)
[2018-07-26] MEDS: Heparin 25,000 UNIT/250 ML D5W 25,000 UNIT/250 ML IV.SOLN IVC SCH (16:51)
[2018-07-26] MEDS: *HR* Heparin 5,000 UNIT/ML VIAL IVP PRN (17:42)
[2018-07-27] MEDS: Piperacillin/Tazobactam 3.375 GM in 0.9 % Sodium Chloride Mini Bag 100 ML IVPB SCH ×2 (00:05→08:31)
[2018-07-27 04:00] LABS: Basophils % 0.5 %; Eosinophils # 0.2 K/mcL (0.0-0.6); Eosinophils % 2.3 %; Hematocrit 23.3 % (35.3-44.9); Hemoglobin 7.3 g/dL (11.5-15.4); Immature Granulocytes % 2.9 % (0-4); Immature Reticulocyte % 33.1 % (11.0-38.0); Lymphocytes # 2.1 K/mcL (0.6-4.6); Lymphocytes % 31.4 %; Mean Corpuscular HGB Conc 31.3 g/dL (31.6-35.5); Mean Corpuscular Hemoglobin 30.9 pg (28.0-33.3); Mean Corpuscular Volume 98.7 fL (83.0-100.0); Mean Platelet Volume 10.6 fL (9.4-12.4); Monocytes # 0.6 K/mcL (0.0-1.3); Monocytes % 8.8 %; Neutrophils # 3.6 K/mcL (1.6-8.9); Platelet Count 254 K/mcL (140-400); Red Blood Count 2.36 M/mcL (3.82-4.97); Red Cell Distribution Width 18.7 % (11.5-14.5); Retculocyte # 0.08 M/mcL (0.05-0.10); Reticulocyte % 3.5 % (1.6-2.8); Segmented Neutrophils % 54.1 %; White Blood Count 6.6 K/mcL (4.3-11.1)
[2018-07-27 04:13] LABS: BUN/Creatinine Ratio 34 (6-26); Blood Urea Nitrogen 20 mg/dL (8-23); Calcium 7.7 mg/dL (8.6-10.3); Carbon Dioxide 23 mEq/L (23-29); Chloride 111 mEq/L (98-107); Glucose 204 mg/dL (70-105); Lactate Dehydrogenase 140 Units/L (140-271); Magnesium 1.8 mg/dL (1.6-2.6); Osmolality,Calculated 294 (280-300); Phosphorous 2.3 mg/dL (2.7-4.5); Potassium 3.9 mEq/L (3.5-5.1); Sodium 138 mEq/L (136-145); eGFR For African Americans > 60 (> 60); eGFR For Non-African Americans > 60 (> 60)
[2018-07-27 04:34] LABS: Anisocytosis 1+ (Not Present); Hypochromasia Present (Not Present)
[2018-07-27 04:35] LABS: Platelet Estimate Normal (Normal)
[2018-07-27] MEDS: Aspirin 81 MG TAB.CHEW PO SCH (08:31)
[2018-07-27] MEDS: Lisinopril 20 MG TABLET PO SCH (08:31)
[2018-07-27] MEDS: Insulin LISPRO 300 UNITS/3 ML VIAL SQ SCH ×4 (08:32→20:48)
--- NOTE | 2018-07-27 11:51 | Internal Med Progress Note ---
Hospitalist Progress Note - Encounter Date of Encounter: 07/27/18 Time of Encounter: 11:48 - Subjective Interval History: Patient seen and examined this morning. Sitting in bed, eating breakfast. Denies any sob or chest pain. No overnight events reported. Will f/u with Dr. Mata(GI) in regards to EGD and colonoscopy as patient continues to have a drop in h&H and she will need to be on long-term anticoagulation Ten point ROS is negative except as listed above - Exam Vitals: Temp Pulse Resp BP Pulse Ox 98.1 F 62 18 141/53 98 07/27/18 11:22 07/27/18 11:22 07/27/18 11:22 07/27/18 11:22 07/27/18 11:22 Exam: General: No acute distress, AAO x 3, obese HEENT: EOMI, NC/AT, no scleral icterus Respiratory: Diminished breath sounds, no rales, equal air entry bilaterally, no wheezing Cardiovascular: Regular, Rate, Rhythm, No murmurs GI: Soft, Non tender, non distended, normal bowel sounds Ext: trace right LE edema, pitting LLE edema, no tenderness, positive pulses Neuro: awake and alert, left hemiparesis Rest of the clinical exam is noncontributory - Assessment and Plan (1) Diabetes mellitus Current Visit: No Status: Acute (2) CVA, old, 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 Acute change in mental status likely multifactorial-secondary to bacteremia-likely secondary to UTI; hepatitis A, and acute CVA mental status improved and back to baseline continue IV zosyn, awaiting final culture report and sensitivity repeat blood cultures remain negative thus far urine culture reported no growth 2. Acute CVA neurology evaluation appreciated diet adjusted as per speech therapist's recommendations carotid doppler preliminary report: normal with nonstenotic plaque in the right bifurcation, left prox, mid, and distal CCA and bifurcation. Will f/u official report PT eval recommending inpatient rehab continue aspirin and statin therapy 3. Elevated TNI cardiology input appreciated, cardiology signed off no acute intervention recommended 4. UTI continue IV abx urine culture reported no growth 5. Elevated transaminases likely secondary to Hepatitis A transaminases wnl continue supportive care 6. LE DVT hematology on board continue management as per hematology continue heparin drip at this time closely monitor H&H 7. Acute on chronic anemia stool occult negative: 07/22/18, will repeat study pt receiving One unit PRBC on 07/23/18, will monitor H&H closely as per hematology, pt is to continue on heparin drip. will transfuse to maintain hgb>7. If stool occult positive, hold heparin drip GI follow up requested will f/u with GI in regards to EGD and colonoscopy to rule out acute bleed, as patient needs to be on remote computer terminal operator anticoagulation. iron studies, ferritin level consistent to anemia of chronic disease B12 and folate within normal range continue management as per hematology 8. Hypophosphatemia Phos supplemented continue to monitor electrolytes and replace as needed 9. DM type II sliding scale insulin algorithm, increased to medium dose SS monitor fingerstick and blood glucose ADA diet 10. HTN BP within acceptable range continue home meds closely monitor BP DVT ppx: on heparin drip Care plan discussed with patient/RN/consulting provider/pharmacist/case management - Time Spent with Patient Total time spent is greater than 50% in coordination of care (as documented) at patient's floor/unit and/or counseling patient: Internal Medicine: Result - Labs CBC & Chem 7: 07/27/18 03:35 07/27/18 03:35 Labs: Short CBC 07/27/18 Range/Units 03:35 WBC 6.6 (4.3-11.1) K/mcL Hgb 7.3 L (11.5-15.4) g/dL Hct 23.3 L (35.3-44.9) % Plt Count 254 (140-400) K/mcL Neutrophils # 3.6 (1.6-8.9) K/mcL BMP 07/27/18 03:35 Sodium 138 Potassium 3.9 Chloride 111 H Carbon Dioxide 23 BUN 20 Creatinine 0.58 L Glucose 204 H Calcium 7.7 L - ABG Interpretation ABG results: PT/INR, D-dimer PT 15.3 Seconds (9.4-12.1) H 07/23/18 01:15 Consult Discharge Plan - Plan Referrals: Andriy West MD [Primary Care Provider] - 08/01/18 10:30 am (1) Diabetes mellitus Qualifiers: Diabetes mellitus type: type 2 Diabetes mellitus remote computer terminal operator insulin use: with long-term use Chronic kidney disease stage: stage 3 (moderate) (5) UTI (urinary tract infection) Qualifiers: Urinary tract infection type: site unspecified Hematuria presence: with hematuria Qualified Code(s): N39.0 - Urinary tract infection, site not specified; R31.9 - Hematuria, unspecified (6) Altered mental status Qualifiers: Altered mental status type: somnolence Qualified Code(s): R40.0 - Somnolence (8) Anemia Qualifiers: Anemia type: unspecified type Qualified Code(s): D64.9 - Anemia, unspecified
[2018-07-27] MEDS: Heparin 25,000 UNIT/250 ML D5W 25,000 UNIT/250 ML IV.SOLN IVC SCH (12:26)
[2018-07-27] MEDS: cefTRIAXone 2,000 MG in Water for inj. (sterile) 20 ML IVP SCH (16:49)
[2018-07-27] MEDS ORDERED: SODIUM CHLORIDE/NAHCO3/KCL/PEG 4,000 ML SOLN.RECON PO ONE (17:00)
[2018-07-27 18:14] LABS: Hematocrit 24.6 % (35.3-44.9); Hemoglobin 7.7 g/dL (11.5-15.4)
[2018-07-27] MEDS: *HR* OxyCODONE Immed Rel 5 MG TABLET PO PRN (23:27)
[2018-07-28 03:25] LABS: Basophils % 0.5 %; Eosinophils # 0.2 K/mcL (0.0-0.6); Eosinophils % 2.2 %; Hematocrit 22.2 % (35.3-44.9); Immature Granulocytes % 2.2 % (0-4); Lymphocytes # 2.7 K/mcL (0.6-4.6); Lymphocytes % 31.3 %; Mean Corpuscular HGB Conc 31.5 g/dL (31.6-35.5); Mean Corpuscular Hemoglobin 31.4 pg (28.0-33.3); Mean Corpuscular Volume 99.6 fL (83.0-100.0); Mean Platelet Volume 10.2 fL (9.4-12.4); Monocytes # 0.7 K/mcL (0.0-1.3); Monocytes % 8.3 %; Neutrophils # 4.7 K/mcL (1.6-8.9); Platelet Count 293 K/mcL (140-400); Red Blood Count 2.23 M/mcL (3.82-4.97); Red Cell Distribution Width 18.6 % (11.5-14.5); Segmented Neutrophils % 55.5 %; White Blood Count 8.5 K/mcL (4.3-11.1)
[2018-07-28 03:42] LABS: BUN/Creatinine Ratio 42 (6-26); Blood Urea Nitrogen 19 mg/dL (8-23); Calcium 7.8 mg/dL (8.6-10.3); Carbon Dioxide 24 mEq/L (23-29); Chloride 110 mEq/L (98-107); Glucose 127 mg/dL (70-105); Magnesium 1.7 mg/dL (1.6-2.6); Osmolality,Calculated 292 (280-300); Phosphorous 2.7 mg/dL (2.7-4.5); Potassium 4.2 mEq/L (3.5-5.1); Sodium 139 mEq/L (136-145); eGFR For African Americans > 60 (> 60); eGFR For Non-African Americans > 60 (> 60)
[2018-07-28 03:55] LABS: Anisocytosis 1+ (Not Present); Platelet Estimate Normal (Normal); Polychromasia 1+ (Not Present)
[2018-07-28] MEDS: Insulin LISPRO 300 UNITS/3 ML VIAL SQ SCH ×4 (07:32→19:56)
[2018-07-28] MEDS: Aspirin 81 MG TAB.CHEW PO SCH (07:33)
[2018-07-28] MEDS: Lisinopril 20 MG TABLET PO SCH (07:34)
--- NOTE | 2018-07-28 09:55 | Internal Med Progress Note ---
Hospitalist Progress Note - Encounter Date of Encounter: 07/28/18 Time of Encounter: 09:50 - Subjective Interval History: Patient seen and examined earlier this morning. Resting in bed and states she slept well overnight. Denies any shortness of breath, chest pain, abd pain,n/v, fever, or chills at this time. Pt is scheduled for an EGD/colonoscopy later today. Noted to have Hgb: 7.0, will repeat H&H after EGD/colonoscopy Ten point ROS is negative except as listed above - Exam Vitals: Temp Pulse Resp BP Pulse Ox 98.4 F 89 19 182/81 98 07/28/18 07:36 07/28/18 07:36 07/28/18 07:36 07/28/18 07:36 07/28/18 07:36 Exam: General: No acute distress, AAO x 3, obese HEENT: EOMI, NC/AT, no scleral icterus Respiratory: no rales, equal air entry bilaterally, no wheezing Cardiovascular: Regular, Rate, Rhythm, No murmurs GI: Soft, Non tender, non distended, normal bowel sounds Ext: trace right LE edema, pitting LLE edema, no tenderness, positive pulses Neuro: awake and alert, left hemiparesis Rest of the clinical exam is noncontributory - Assessment and Plan (1) Diabetes mellitus Current Visit: No Status: Acute (2) CVA, old, 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 Acute change in mental status likely multifactorial-secondary to bacteremia-likely secondary to UTI; hepatitis A, and acute CVA mental status improved and back to baseline Discontinued IV Zosyn and Started Ceftriaxone IV based on culture sensitivities (day 610 of abx) 2. Acute CVA neurology evaluation appreciated diet adjusted as per speech therapist's recommendations carotid doppler preliminary report: normal with nonstenotic plaque in the right bifurcation, left prox, mid, and distal CCA and bifurcation. Will f/u official report PT eval recommending inpatient rehab continue aspirin and statin therapy 3. Elevated TNI cardiology input appreciated, cardiology signed off no acute intervention recommended 4. UTI continue IV abx 5. Elevated transaminases likely secondary to Hepatitis A transaminases wnl continue supportive care 6. LE DVT hematology on board continue management as per hematology continue heparin drip at this time closely monitor H&H 7. Acute on chronic anemia scheduled for EGD/colonoscopy today heparin drip on hold in anticipation of the procedure, will resume after EGD/co lonoscopy repeat H&H after EGD and colonoscopy Hematology and GI evaluation appreciated 8. Hypophosphatemia resolved continue to monitor electrolytes and replace as needed 9. DM type II sliding scale insulin algorithm monitor fingerstick and blood glucose ADA diet 10. HTN Noted to be hypertensive this morning Will repeat BP after administration of morning meds will closely monitor BP and adjust antihypertensive medications as needed DVT ppx: resume heparin drip after EGD/colonoscopy unless contraindicated by GI Care plan discussed with patient/RN/consulting provider/pharmacist/case management - Time Spent with Patient Total time spent is greater than 50% in coordination of care (as documented) at patient's floor/unit and/or counseling patient: Internal Medicine: Result - Labs CBC & Chem 7: 07/28/18 03:05 07/28/18 03:05 Labs: Short CBC 07/27/18 07/28/18 Range/Units 17:55 03:05 WBC 8.5 (4.3-11.1) K/mcL Hgb 7.7 L 7.0 L (11.5-15.4) g/dL Hct 24.6 L 22.2 L (35.3-44.9) % Plt Count 293 (140-400) K/mcL Neutrophils # 4.7 (1.6-8.9) K/mcL BMP 07/28/18 03:05 Sodium 139 Potassium 4.2 Chloride 110 H Carbon Dioxide 24 BUN 19 Creatinine 0.45 L Glucose 127 H Calcium 7.8 L - ABG Interpretation ABG results: PT/INR, D-dimer PT 15.3 Seconds (9.4-12.1) H 07/23/18 01:15 Consult Discharge Plan - Plan Referrals: Andriy West MD [Primary Care Provider] - 08/01/18 10:30 am (1) Diabetes mellitus Qualifiers: Diabetes mellitus type: type 2 Diabetes mellitus exterminator insulin use: with prison use Chronic kidney disease stage: stage 3 (moderate) (5) UTI (urinary tract infection) Qualifiers: Urinary tract infection type: site unspecified Hematuria presence: with hematuria Qualified Code(s): N39.0 - Urinary tract infection, site not specified; R31.9 - Hematuria, unspecified (6) Altered mental status Qualifiers: Altered mental status type: somnolence Qualified Code(s): R40.0 - Somnolence (8) Anemia Qualifiers: Anemia type: unspecified type Qualified Code(s): D64.9 - Anemia, unspecified
[2018-07-28] MEDS ORDERED: Ondansetron 4 MG/2 ML VIAL IVP PRN (10:15)
[2018-07-28] MEDS ORDERED: Lidocaine -MPF 2% 2 ML VIAL ONE (13:28)
[2018-07-28] MEDS ORDERED: Propofol 500 MG/50 ML INFUS..BTL ONE (13:28)
--- NOTE | 2018-07-28 14:11 | Anesthesia Evaluation PreOp ---
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) Other Medical History: Hepatic (Hep A), GERD, Other (GI Bleed 1 unit PRBC transfused 07/23/2018) Anesthesia History: No Prior Anesthetic Complications, Past Anesthesia (GB, Tubal) : No Alcohol Use: none Drug use: none Medications and Allergies Docusate [Colace] 100 mg PO BID 10/17/16 [History] Glimepiride [Amaryl] 1 mg PO DAILY 10/17/16 [History] Lisinopril [Zestril] 40 mg PO DAILY 10/17/16 [History] Omeprazole [PriLOSEC] 20 mg PO DAILY 10/17/16 [History] metFORMIN [Glucophage] 250 mg PO DAILY 10/17/16 [History] Atorvastatin [Lipitor] 40 mg PO HS 07/19/18 [History] Promethazine [Phenergan] 25 mg PO BID 07/19/18 [History] Glimepiride [Amaryl] 2 mg PO DAILY 07/22/18 [History] Allergy/AdvReac Type Severity Reaction Status Date / Time No Known Allergies Allergy Verified 07/22/18 19:40 - Meds/Allergy Pre-op Review Medications Reviewed: Yes Allergies Reviewed: Yes Beta Blockers on Current Med List: No Anesthesia Results - Labs 07/28/18 03:05 07/28/18 03:05 - Imaging EKG: report reviewed (Sinus rhythm Short [place] interval Inferior infarct, old) Additional studies: Echo 07/22/2018 EF 65-70% Mild valvular dx Anesthesia Exam Vital Signs/O2 Sat, Most Current Temp Pulse Resp BP Pulse Ox 97.5 F L 58 18 153/76 97 07/28/18 11:13 07/28/18 11:13 07/28/18 11:13 07/28/18 11:13 07/28/18 11:13 Blood glucose: 180 NPO (# of Hours): > 8 hrs Pain Scale: 0 Pain Scale Used: Numeric (1 - 10) - HEENT Pupil (Motor): Pupils equal, EOMI Mallampati: III Teeth: Poor dentition Oral Opening: Greater than 3 - TELECOMMUNICATIONS FIELD TECHNICIAN LOC: Oriented TELECOMMUNICATIONS FIELD TECHNICIAN Motor: Normal RUE, Normal LUE, Normal RLE, Normal LLE, Normal Face TELECOMMUNICATIONS FIELD TECHNICIAN Sensory: Normal: RUE, LUE, RLE, LLE, Face - Cardiac Rhythm: Regular Murmur: None JVD: No Carotid Bruit: No - Pulmonary Breath Sounds: bilateral Clear Respiratory Effort: Symmetrical Anesthesia Assess/Plan ASA Score: 3 Anesthetic Plan: MAC Autologous Blood: Yes Monitoring Plan: Standard Monitors Recovery Plan: Other
[2018-07-28 15:46] LABS: Hematocrit 22.7 % (35.3-44.9); Hemoglobin 7.2 g/dL (11.5-15.4)
[2018-07-28] MEDS: cefTRIAXone 2,000 MG in Water for inj. (sterile) 20 ML IVP SCH (16:02)
[2018-07-28] MEDS: *HR* OxyCODONE Immed Rel 5 MG TABLET PO PRN (18:03)
[2018-07-28] MEDS: *HR* Heparin 5,000 UNIT/ML VIAL IVP PRN (21:59)
[2018-07-28] MEDS: Heparin 25,000 UNIT/250 ML D5W 25,000 UNIT/250 ML IV.SOLN IVC SCH (22:27)
[2018-07-29] MEDS: Heparin 25,000 UNIT/250 ML D5W 25,000 UNIT/250 ML IV.SOLN IVC SCH (02:41)
[2018-07-29 03:51] LABS: Kappa Qnt Free Light Chains 4.96 mg/dL (0.33-1.94); Lambda Qnt Free Light Chains 5.64 mg/dL (0.57-2.63)
[2018-07-29 07:19] LABS: Alpha 2 Globulin (PEP) 0.79 g/dL (0.48-1.05); Beta Globulin (PEP) 0.72 g/dL (0.48-1.10)
[2018-07-29] MEDS: Lisinopril 20 MG TABLET PO SCH (08:40)
[2018-07-29] MEDS: Aspirin 81 MG TAB.CHEW PO SCH (08:40)
[2018-07-29 09:12] LABS: Basophils % 0.4 %; Eosinophils # 0.2 K/mcL (0.0-0.6); Eosinophils % 3.4 %; Immature Granulocytes % 1.5 % (0-4); Lymphocytes # 2.3 K/mcL (0.6-4.6); Mean Corpuscular HGB Conc 31.8 g/dL (31.6-35.5); Mean Corpuscular Hemoglobin 31.7 pg (28.0-33.3); Mean Corpuscular Volume 99.5 fL (83.0-100.0); Mean Platelet Volume 10.5 fL (9.4-12.4); Monocytes # 0.5 K/mcL (0.0-1.3); Monocytes % 6.9 %; Neutrophils # 3.7 K/mcL (1.6-8.9); Platelet Count 299 K/mcL (140-400); Red Blood Count 2.21 M/mcL (3.82-4.97); Red Cell Distribution Width 19.1 % (11.5-14.5); Segmented Neutrophils % 53.8 %; White Blood Count 6.9 K/mcL (4.3-11.1)
[2018-07-29 09:30] LABS: BUN/Creatinine Ratio 30 (6-26); Blood Urea Nitrogen 14 mg/dL (8-23); Calcium 8.1 mg/dL (8.6-10.3); Carbon Dioxide 26 mEq/L (23-29); Chloride 106 mEq/L (98-107); Glucose 153 mg/dL (70-105); Magnesium 1.6 mg/dL (1.6-2.6); Osmolality,Calculated 288 (280-300); Phosphorous 2.5 mg/dL (2.7-4.5); Potassium 4.2 mEq/L (3.5-5.1); Sodium 137 mEq/L (136-145); eGFR For African Americans > 60 (> 60); eGFR For Non-African Americans > 60 (> 60)
[2018-07-29] MEDS: Insulin LISPRO 300 UNITS/3 ML VIAL SQ SCH ×4 (09:38→20:15)
--- NOTE | 2018-07-29 10:23 | Internal Med Progress Note ---
Hospitalist Progress Note - Encounter Date of Encounter: 07/29/18 Time of Encounter: 10:19 - Subjective Interval History: Patient seen and examined at bedside. Pt is s/p EGD and colonoscopy on 07/28 EGD reported: no acute bleeding colonoscopy was nonconclusive due to poor bowel prep Pt scheduled for a repeat colonoscopy on Wednesday She denies any pain or sob at this time. Noted to have Hgb of 7 this morning, will repeat H&H this afternoon and transfuse as needed. Ten point ROS is negative except as listed above - Exam Vitals: Temp Pulse Resp BP Pulse Ox 99.1 F 59 16 143/60 97 07/29/18 07:38 07/29/18 07:38 07/29/18 07:38 07/29/18 07:38 07/29/18 07:38 Exam: General: No acute distress, AAO x 3, obese HEENT: EOMI, NC/AT, no scleral icterus Respiratory: no rales, equal air entry bilaterally, no wheezing Cardiovascular: Regular, Rate, Rhythm, No murmurs GI: Soft, Non tender, non distended, normal bowel sounds Ext: trace right LE edema, pitting LLE edema, no tenderness, positive pulses Neuro: awake and alert, left hemiparesis Rest of the clinical exam is noncontributory - Assessment and Plan (1) Diabetes mellitus Current Visit: No Status: Acute (2) CVA, old, 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 Acute change in mental status likely multifactorial-secondary to bacteremia-likely secondary to UTI; hepatitis A, and acute CVA mental status improved and back to baseline Continue Ceftriaxone IV based on culture sensitivities (day 08/17 of abx) 2. Acute CVA neurology evaluation appreciated diet adjusted as per speech therapist's recommendations carotid doppler preliminary report: normal with nonstenotic plaque in the right bifurcation, left prox, mid, and distal CCA and bifurcation. PT eval recommending inpatient rehab continue aspirin and statin therapy 3. Elevated TNI cardiology input appreciated, cardiology signed off no acute intervention recommended 4. UTI continue IV abx 5. Elevated transaminases likely secondary to Hepatitis A transaminases wnl continue supportive care 6. LE DVT hematology on board continue management as per hematology continue heparin drip at this time closely monitor H&H 7. Acute on chronic anemia s/p EGD on 07/28/18: no acute bleeding reported scheduled for colonoscopy on Wednesday restarted on heparin drip repeat H&H at 1400, transfuse for Hgb<7 Hematology and GI evaluation appreciated 8. Hypophosphatemia phos supplemented continue to monitor electrolytes and replace as needed 9. DM type II sliding scale insulin algorithm monitor fingerstick and blood glucose ADA diet 10. HTN BP within acceptable range will closely monitor BP and adjust antihypertensive medications as needed DVT ppx: continue heparin drip Care plan discussed with patient/RN/consulting provider/pharmacist/case management - Time Spent with Patient Total time spent is greater than 50% in coordination of care (as documented) at patient's floor/unit and/or counseling patient: Internal Medicine: Result - Labs CBC & Chem 7: 07/29/18 08:44 07/29/18 08:44 Labs: Short CBC 07/28/18 07/29/18 Range/Units 15:34 08:44 WBC 6.9 (4.3-11.1) K/mcL Hgb 7.2 L 7.0 L (11.5-15.4) g/dL Hct 22.7 L 22.0 L (35.3-44.9) % Plt Count 299 (140-400) K/mcL Neutrophils # 3.7 (1.6-8.9) K/mcL BMP 07/29/18 08:44 Sodium 137 Potassium 4.2 Chloride 106 Carbon Dioxide 26 BUN 14 Creatinine 0.46 L Glucose 153 H Calcium 8.1 L - ABG Interpretation ABG results: PT/INR, D-dimer PT 15.3 Seconds (9.4-12.1) H 07/23/18 01:15 - Impressions Impressions Abdomen MRI 07/22/18 09:36 IMPRESSION: Status post cholecystectomy. Two small stones in the common bile duct measuring up to 4 mm in size without significant biliary ductal dilatation. Unremarkable appearance of the pancreatic duct. Mild hepatic steatosis. D/ / 07/22/2018 12:07:35 Alexandre Mora MD / Génesis Banks Interpreting Provider: Alexandre Mora MD Consult Discharge Plan - Plan Referrals: Andriy West MD [Primary Care Provider] - (Patient is going to [facility] no PCP appointment needed) (1) Diabetes mellitus Qualifiers: Diabetes mellitus type: type 2 Diabetes mellitus senior living insulin use: with rodent exterminator use Chronic kidney disease stage: stage 3 (moderate) (5) UTI (urinary tract infection) Qualifiers: Urinary tract infection type: site unspecified Hematuria presence: with hematuria Qualified Code(s): N39.0 - Urinary tract infection, site not specified; R31.9 - Hematuria, unspecified (6) Altered mental status Qualifiers: Altered mental status type: somnolence Qualified Code(s): R40.0 - Somnolence (8) Anemia Qualifiers: Anemia type: unspecified type Qualified Code(s): D64.9 - Anemia, unspecified
[2018-07-29 10:29] LABS: IFE Reflexed NOT DONE
[2018-07-29] MEDS: cefTRIAXone 2,000 MG in Water for inj. (sterile) 20 ML IVP SCH (16:37)
[2018-07-29] MEDS: *HR* OxyCODONE Immed Rel 5 MG TABLET PO PRN (16:40)
[2018-07-29 17:07] LABS: Hematocrit 22.2 % (35.3-44.9)
--- NOTE | 2018-07-29 17:53 | Oncology Inp Progress Note ---
<Yocasta Pope - Last Filed: 07/29/18 17:50> Date of Encounter: 07/29/18 Time of Encounter: 15:30 (1) Acute deep vein thrombosis (DVT) of iliac vein of left lower extremity Current Visit: No Status: Acute Assessment and plan: Assessment: 1. LLE DVT Plan: On Heparin gtt in light of acute LLE DVT. Patient needing to have colonoscopy on 07/31/18. -Please continue to monitor H/H closely (at least q12h). Transfuse 1 unit of PRBCs for Hgb < 7.0 (2) Anemia Current Visit: Yes Status: Acute Assessment and plan: 2. Iron deficiency anemia Fe 18, % sat 9, transferrin 145, ferritin 523; administer venofer 300 mg IV x 1. Folic acid 6.5, start on folic acid 1 mg PO daily. B12 level, LDH, reticulocyte count, blood smear, and haptoglobin reviewed. GI c/s appreciated recommendations. EGD complete. Colonoscopy on 07/31/18. Patient will need to follow-up with Dr. Marie at [facility] 4 weeks after discharge. Qualifiers: Anemia type: unspecified type Qualified Code(s): D64.9 - Anemia, unspecified Oncology: Subj Interval history: Ms. Blakely is awake and alert this afternoon, sitting it bed. Discussed that pending labs have resulted with no concerns. Patient's low hemoglobin appears to be related to GI bleed. Patient accepting of information and states that she is going to be discharged to [facility] in [place], [place]. Discussed need to follow-up at [facility] in 4 weeks to review labs. Verbalized acceptance. - Additional findings Additional findings: General: Alert and oriented,fatigued appearing. Mental Status: Affect appropriate for circumstances Skin: No rashes or petechiae. Pale Neurologic: Alert, cranial nerves II-XII intact; no focal weakness or sensory abnormalities. Oncology: Obj Data - Labs CBC & Chem 7: 07/29/18 16:40 07/29/18 08:44 Consult Discharge Plan - Plan Referrals: Andriy West MD [Primary Care Provider] - (Patient is going to [facility] no PCP appointment needed) Inpatient Charges Provider: Dr. Ruben Redmond <Haroon Redmond - Last Filed: 07/29/18 21:31> Date of Encounter: 07/29/18 Oncology: Obj Data - Labs CBC & Chem 7: 07/29/18 16:40 07/29/18 08:44 Inpatient Charges Provider: Dr. Ruben Henson Follow up - Inpatient: [id number] - Attending Attestation I examined this patient and my medical decision-making was reviewed with the Advanced Practice Nurse. I agree with the documented findings, disposition and treatment plan as described except to the extent set forth below. Ms. Blakely was admitted with acute blood loss anemia. Hemoglobin remained stable on a heparin drip. EGD is unrevealing. Repeat colonoscopy is planned for Wednesday secondary to poor prep. On examination, she is resting comfortably watching television. Heart regular rate and rhythm. Lungs are clear to auscultation. Abdomen soft nontender nondistended without palpable splenomegaly. Remainder for left her workup including paraproteinemia evaluation are negative. Continue with transfusions for for single less than 7. We will arrange for outpatient follow-up to ensure continued improvement. We will otherwise sign off.
[2018-07-30 02:01] LABS: Urine Collection Volume RANDOM mL
[2018-07-30 06:54] LABS: Basophils % 0.6 %; Eosinophils # 0.2 K/mcL (0.0-0.6); Eosinophils % 2.9 %; Hematocrit 21.8 % (35.3-44.9); Hemoglobin 6.7 g/dL (11.5-15.4); Immature Granulocytes % 1.5 % (0-4); Lymphocytes % 30.7 %; Mean Corpuscular HGB Conc 30.7 g/dL (31.6-35.5); Mean Corpuscular Hemoglobin 31.2 pg (28.0-33.3); Mean Corpuscular Volume 101.4 fL (83.0-100.0); Mean Platelet Volume 10.3 fL (9.4-12.4); Monocytes # 0.4 K/mcL (0.0-1.3); Monocytes % 6.3 %; Neutrophils # 3.9 K/mcL (1.6-8.9); Platelet Count 312 K/mcL (140-400); Red Blood Count 2.15 M/mcL (3.82-4.97); Red Cell Distribution Width 19.5 % (11.5-14.5); White Blood Count 6.6 K/mcL (4.3-11.1)
[2018-07-30 07:15] LABS: BUN/Creatinine Ratio 27 (6-26); Blood Urea Nitrogen 15 mg/dL (8-23); Calcium 7.9 mg/dL (8.6-10.3); Carbon Dioxide 26 mEq/L (23-29); Chloride 107 mEq/L (98-107); Glucose 176 mg/dL (70-105); Magnesium 1.7 mg/dL (1.6-2.6); Osmolality,Calculated 289 (280-300); Phosphorous 2.9 mg/dL (2.7-4.5); Potassium 4.1 mEq/L (3.5-5.1); Sodium 137 mEq/L (136-145); eGFR For African Americans > 60 (> 60); eGFR For Non-African Americans > 60 (> 60)
[2018-07-30] MEDS: Lisinopril 20 MG TABLET PO SCH (08:00)
[2018-07-30] MEDS: Aspirin 81 MG TAB.CHEW PO SCH (08:01)
[2018-07-30] MEDS: Acetaminophen 325 MG TABLET PO PRN ×2 (08:01→23:16)
[2018-07-30] MEDS: Insulin LISPRO 300 UNITS/3 ML VIAL SQ SCH ×4 (08:02→19:53)
[2018-07-30] MEDS: Heparin 25,000 UNIT/250 ML D5W 25,000 UNIT/250 ML IV.SOLN IVC SCH ×2 (09:46→20:58)
[2018-07-30] MEDS ORDERED: 0.9 % Sodium Chloride 250 ML ONE (11:12)
[2018-07-30] MEDS ORDERED: Furosemide 20 MG/2 ML VIAL IVP ONE (12:39)
--- NOTE | 2018-07-30 12:42 | Internal Med Progress Note ---
Hospitalist Progress Note - Encounter Date of Encounter: 07/30/18 Time of Encounter: 12:37 - Subjective Interval History: Patient seen and examined earlier this morning. Reports of feeling weak compared to previous day. Denies any sob, chest pain,abd pain,n/v, fever, or chills. Noted to have drop in H&H. Will transfuse one unit PRBC Ten point ROS is negative except as listed above - Exam Vitals: Temp Pulse Resp BP Pulse Ox 98.3 F 51 16 161/69 98 07/30/18 11:33 07/30/18 11:33 07/30/18 11:33 07/30/18 11:33 07/30/18 11:33 Exam: General: No acute distress, AAO x 3, obese HEENT: EOMI, NC/AT, no scleral icterus Respiratory: no rales, equal air entry bilaterally, no wheezing Cardiovascular: Regular, Rate, Rhythm, No murmurs GI: Soft, Non tender, non distended, normal bowel sounds Ext: trace right LE edema, pitting LLE edema, no tenderness, positive pulses Neuro: awake and alert, left hemiparesis Rest of the clinical exam is noncontributory - Assessment and Plan (1) Diabetes mellitus Current Visit: No Status: Acute (2) CVA, old, 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 Acute change in mental status likely multifactorial-secondary to bacteremia-likely secondary to UTI; hepatitis A, and acute CVA mental status improved and back to baseline Continue Ceftriaxone IV based on culture sensitivities (day 8/10 of abx) 2. Acute CVA neurology evaluation appreciated diet adjusted as per speech therapist's recommendations PT eval recommending inpatient rehab continue aspirin and statin therapy 3. Elevated TNI cardiology input appreciated, cardiology signed off no acute intervention recommended 4. UTI continue IV abx 5. Elevated transaminases likely secondary to Hepatitis A transaminases wnl continue supportive care 6. LE DVT hematology on board continue management as per hematology continue heparin drip at this time closely monitor H&H 7. Acute on chronic anemia s/p EGD on 07/28/18: no acute bleeding reported scheduled for colonoscopy on Wednesday on heparin drip Drop in H&H noted, one unit PRBC ordered to be transfused today. Repeat H&H at 1900. One time dose of lasix ordered to be given after PRBC transfusioon Hematology and GI evaluation appreciated 8. Hypophosphatemia resolved continue to monitor electrolytes and replace as needed 9. DM type II sliding scale insulin algorithm monitor fingerstick and blood glucose ADA diet 10. HTN Noted to be hypertensive this morning will repeat BP after administration of BP meds will closely monitor BP and adjust antihypertensive medications as needed DVT ppx: continue heparin drip Care plan discussed with patient/RN - Time Spent with Patient Total time spent is greater than 50% in coordination of care (as documented) at patient's floor/unit and/or counseling patient: Internal Medicine: Result - Labs CBC & Chem 7: 07/30/18 06:40 07/30/18 06:40 Labs: Short CBC 07/29/18 07/30/18 Range/Units 16:40 06:40 WBC 6.6 (4.3-11.1) K/mcL Hgb 7.0 L 6.7 L (11.5-15.4) g/dL Hct 22.2 L 21.8 L (35.3-44.9) % Plt Count 312 (140-400) K/mcL Neutrophils # 3.9 (1.6-8.9) K/mcL BMP 07/30/18 06:40 Sodium 137 Potassium 4.1 Chloride 107 Carbon Dioxide 26 BUN 15 Creatinine 0.55 L Glucose 176 H Calcium 7.9 L - ABG Interpretation ABG results: PT/INR, D-dimer PT 15.3 Seconds (9.4-12.1) H 07/23/18 01:15 Consult Discharge Plan - Plan Referrals: Andriy West MD [Primary Care Provider] - (Patient is going to [facility] no PCP appointment needed) (1) Diabetes mellitus Qualifiers: Diabetes mellitus type: type 2 Diabetes mellitus penitentiary insulin use: with exterminator termite use Chronic kidney disease stage: stage 3 (moderate) (5) UTI (urinary tract infection) Qualifiers: Urinary tract infection type: site unspecified Hematuria presence: with hematuria Qualified Code(s): N39.0 - Urinary tract infection, site not specified; R31.9 - Hematuria, unspecified (6) Altered mental status Qualifiers: Altered mental status type: somnolence Qualified Code(s): R40.0 - Somnolence (8) Anemia Qualifiers: Anemia type: unspecified type Qualified Code(s): D64.9 - Anemia, unspecified
[2018-07-30] MEDS: cefTRIAXone 2,000 MG in Water for inj. (sterile) 20 ML IVP SCH (16:09)
--- NOTE | 2018-07-30 18:10 | Anesthesia Evaluation PreOp ---
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) Other Medical History: Hepatic (H/O hepatitis A), Diabetes Type II, GERD, Other (GI bleed this admission S/P transfusion 1u PRBC) Anesthesia History: No Prior Anesthetic Complications, Past Anesthesia Alcohol Use: none Drug use: none Medications and Allergies Docusate [Colace] 100 mg PO BID 10/17/16 [History] Glimepiride [Amaryl] 1 mg PO DAILY 10/17/16 [History] Lisinopril [Zestril] 40 mg PO DAILY 10/17/16 [History] Omeprazole [PriLOSEC] 20 mg PO DAILY 10/17/16 [History] metFORMIN [Glucophage] 250 mg PO DAILY 10/17/16 [History] Atorvastatin [Lipitor] 40 mg PO HS 07/19/18 [History] Promethazine [Phenergan] 25 mg PO BID 07/19/18 [History] Glimepiride [Amaryl] 2 mg PO DAILY 07/22/18 [History] Allergy/AdvReac Type Severity Reaction Status Date / Time No Known Allergies Allergy Verified 07/22/18 19:40 - Meds/Allergy Pre-op Review Medications Reviewed: Yes Allergies Reviewed: Yes Beta Blockers on Current Med List: No Anesthesia Results - Labs 07/31/18 03:30 07/31/18 03:30 - Imaging EKG: report reviewed (07/21/2018 Sinus rhythm Short [place] interval Inferior infarct, old) Additional studies: 07/22/2018 Echo LVEF 65-70% mild LV diastolic dysfunction normal RV structure and function mildly dilated LA mild TR unable to estimate RVSP due to lack of TR jet Anesthesia Exam Height: 5'9''/1.75m Weight: 231 lbs/105.2 kg <Jeannette Millan - Last Filed: 08/01/18 13:53> Date of Encounter: 08/01/18 Time of Encounter: 13:53 Anesthesia Results - Labs 08/01/18 05:35 08/01/18 05:35
[2018-07-30 19:04] LABS: Hematocrit 29.5 % (35.3-44.9)
[2018-07-30 19:09] LABS: Hemoglobin 9.3 g/dL (11.5-15.4)
[2018-07-30] MEDS: *HR* HYDROcodone/Acet 5/325 mg TABLET PO PRN (20:00)
[2018-07-31 04:01] LABS: Basophils % 0.4 %; Eosinophils # 0.2 K/mcL (0.0-0.6); Eosinophils % 2.2 %; Hematocrit 27.4 % (35.3-44.9); Hemoglobin 8.6 g/dL (11.5-15.4); Immature Granulocytes % 1.2 % (0-4); Lymphocytes # 1.7 K/mcL (0.6-4.6); Lymphocytes % 25.8 %; Mean Corpuscular HGB Conc 31.4 g/dL (31.6-35.5); Mean Corpuscular Hemoglobin 30.6 pg (28.0-33.3); Mean Corpuscular Volume 97.5 fL (83.0-100.0); Mean Platelet Volume 10.4 fL (9.4-12.4); Monocytes # 0.5 K/mcL (0.0-1.3); Monocytes % 6.7 %; Neutrophils # 4.3 K/mcL (1.6-8.9); Platelet Count 341 K/mcL (140-400); Red Blood Count 2.81 M/mcL (3.82-4.97); Red Cell Distribution Width 19.9 % (11.5-14.5); Segmented Neutrophils % 63.7 %; White Blood Count 6.7 K/mcL (4.3-11.1)
[2018-07-31 04:02] LABS: BUN/Creatinine Ratio 27 (6-26); Blood Urea Nitrogen 12 mg/dL (8-23); Calcium 8.2 mg/dL (8.6-10.3); Carbon Dioxide 25 mEq/L (23-29); Chloride 104 mEq/L (98-107); Glucose 186 mg/dL (70-105); Magnesium 1.6 mg/dL (1.6-2.6); Osmolality,Calculated 283 (280-300); Phosphorous 3.1 mg/dL (2.7-4.5); Potassium 3.9 mEq/L (3.5-5.1); Sodium 134 mEq/L (136-145); eGFR For African Americans > 60 (> 60); eGFR For Non-African Americans > 60 (> 60)
[2018-07-31] MEDS: Insulin LISPRO 300 UNITS/3 ML VIAL SQ SCH ×4 (10:17→20:44)
[2018-07-31] MEDS: Lisinopril 20 MG TABLET PO SCH (10:18)
[2018-07-31] MEDS: Aspirin 81 MG TAB.CHEW PO SCH (10:18)
--- NOTE | 2018-07-31 11:34 | Internal Med Progress Note ---
Hospitalist Progress Note - Encounter Date of Encounter: 07/31/18 Time of Encounter: 11:32 - Subjective Interval History: Patient seen and examined at bedside. resting in bed, denies any sob, chest pain at this time She is upset because her colonoscopy was cancelled this morning Scheduled for colonoscopy in am No overnight events reported Ten point ROS is negative except as listed above Pt encouraged to get out of bed to chair with assistance, pt refusing at this time - Exam Vitals: Temp Pulse Resp BP Pulse Ox 98.2 F 58 18 170/71 97 07/31/18 03:20 07/31/18 07:50 07/31/18 07:50 07/31/18 07:50 07/31/18 07:50 Exam: General: No acute distress, AAO x 3, obese HEENT: EOMI, NC/AT, no scleral icterus Respiratory: no rales, equal air entry bilaterally, no wheezing Cardiovascular: Regular, Rate, Rhythm, No murmurs GI: Soft, Non tender, non distended, normal bowel sounds Ext: trace right LE edema, pitting LLE edema, no tenderness, positive pulses Neuro: awake and alert, left hemiparesis Rest of the clinical exam is noncontributory - Assessment and Plan (1) Diabetes mellitus Current Visit: No Status: Acute (2) CVA, old, 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 Acute change in mental status likely multifactorial-secondary to bacteremia-likely secondary to UTI; hepatitis A, and acute CVA mental status improved and back to baseline Continue Ceftriaxone IV based on culture sensitivities (day 9/10 of abx) 2. Acute CVA neurology evaluation appreciated diet adjusted as per speech therapist's recommendations PT eval recommending inpatient rehab continue aspirin and statin therapy 3. Elevated TNI cardiology input appreciated, cardiology signed off no acute intervention recommended 4. UTI continue IV abx 5. Elevated transaminases likely secondary to Hepatitis A transaminases wnl continue supportive care 6. LE DVT hematology on board continue management as per hematology continue heparin drip at this time closely monitor H&H 7. Acute on chronic anemia s/p EGD on 07/28/18: no acute bleeding reported scheduled for colonoscopy in am, NPO after midnight on heparin drip s/p one unit PRBC transfusion on 07/30/18, repeat H&H within acceptable range, will continue to monitor GI and hematology follow up requested 8. Hypophosphatemia resolved continue to monitor electrolytes and replace as needed 9. DM type II sliding scale insulin algorithm monitor fingerstick and blood glucose ADA diet 10. HTN Noted to be hypertensive this morning will repeat BP after administration of BP meds will closely monitor BP and adjust antihypertensive medications as needed DVT ppx: continue heparin drip Care plan discussed with patient/RN - Time Spent with Patient Total time spent is greater than 50% in coordination of care (as documented) at patient's floor/unit and/or counseling patient: Internal Medicine: Result - Labs CBC & Chem 7: 07/31/18 03:30 07/31/18 03:30 Labs: Short CBC 07/30/18 07/31/18 Range/Units 18:50 03:30 WBC 6.7 (4.3-11.1) K/mcL Hgb 9.3 L D 8.6 L (11.5-15.4) g/dL Hct 29.5 L 27.4 L (35.3-44.9) % Plt Count 341 (140-400) K/mcL Neutrophils # 4.3 (1.6-8.9) K/mcL BMP 07/31/18 03:30 Sodium 134 L Potassium 3.9 Chloride 104 Carbon Dioxide 25 BUN 12 Creatinine 0.44 L Glucose 186 H Calcium 8.2 L - ABG Interpretation ABG results: PT/INR, D-dimer PT 15.3 Seconds (9.4-12.1) H 07/23/18 01:15 Consult Discharge Plan - Plan Referrals: Andriy West MD [Primary Care Provider] - (Patient is going to [facility] no PCP appointment needed) (1) Diabetes mellitus Qualifiers: Diabetes mellitus type: type 2 Diabetes mellitus intermediate teacher insulin use: with fpc use Chronic kidney disease stage: stage 3 (moderate) (5) UTI (urinary tract infection) Qualifiers: Urinary tract infection type: site unspecified Hematuria presence: with hematuria Qualified Code(s): N39.0 - Urinary tract infection, site not specified; R31.9 - Hematuria, unspecified (6) Altered mental status Qualifiers: Altered mental status type: somnolence Qualified Code(s): R40.0 - Somnolence (8) Anemia Qualifiers: Anemia type: unspecified type Qualified Code(s): D64.9 - Anemia, unspecified
--- NOTE | 2018-07-31 11:52 | Event Note ---
Date of Encounter: 07/31/18 Time of Encounter: 11:51 Brief Hospital Course: Ms. Blakely is a 72y/o female admitted for LE DVT, acute change in mental status secondary to UTI, hepatitis A, and acute CVA. She was started on IV abx, IV fluids, and neurology evaluation was requested. Pt responded well to therapy with improvement in her mental status. Neurology recommended continuation of aspirin and statin along with physical therapy. Hospital course was complicated with acute on chronic anemia and given the acute LE DVT, hematology was consulted. Pt is currently undergoing GI evaluation for EGD and colonoscopy. Currently on heparin drip with close monitoring of H&H. She has required two transfusions during this hospital stay. Scheduled for colonoscopy on 08/01/18, based on colonoscopy findings, pt can be transitioned to PO anticoagulation. PT eval is recommending SNF. Patient's stool occult has remained negative
[2018-07-31] MEDS: Heparin 25,000 UNIT/250 ML D5W 25,000 UNIT/250 ML IV.SOLN IVC SCH (17:03)
[2018-07-31] MEDS: *HR* Heparin 5,000 UNIT/ML VIAL IVP PRN (17:06)
[2018-07-31] MEDS: cefTRIAXone 2,000 MG in Water for inj. (sterile) 20 ML IVP SCH (17:56)
[2018-07-31] MEDS: amLODIPine 5 MG TABLET PO SCH (17:57)
[2018-08-01 05:51] LABS: Basophils % 0.4 %; Eosinophils # 0.2 K/mcL (0.0-0.6); Eosinophils % 2.4 %; Hematocrit 28.7 % (35.3-44.9); Lymphocytes # 1.8 K/mcL (0.6-4.6); Lymphocytes % 25.3 %; Mean Corpuscular HGB Conc 31.4 g/dL (31.6-35.5); Mean Corpuscular Hemoglobin 30.7 pg (28.0-33.3); Monocytes # 0.4 K/mcL (0.0-1.3); Neutrophils # 4.6 K/mcL (1.6-8.9); Platelet Count 350 K/mcL (140-400); Red Blood Count 2.93 M/mcL (3.82-4.97); Segmented Neutrophils % 64.9 %; White Blood Count 7.1 K/mcL (4.3-11.1)
[2018-08-01 06:08] LABS: BUN/Creatinine Ratio 14 (6-26); Blood Urea Nitrogen 6 mg/dL (8-23); Calcium 8.4 mg/dL (8.6-10.3); Carbon Dioxide 26 mEq/L (23-29); Chloride 103 mEq/L (98-107); Glucose 164 mg/dL (70-105); Magnesium 1.6 mg/dL (1.6-2.6); Osmolality,Calculated 285 (280-300); Potassium 3.7 mEq/L (3.5-5.1); Sodium 137 mEq/L (136-145); eGFR For African Americans > 60 (> 60); eGFR For Non-African Americans > 60 (> 60)
[2018-08-01] MEDS: Insulin LISPRO 300 UNITS/3 ML VIAL SQ SCH ×4 (09:00→21:28)
[2018-08-01] MEDS: Aspirin 81 MG TAB.CHEW PO SCH (09:04)
[2018-08-01] MEDS: amLODIPine 5 MG TABLET PO SCH (09:04)
[2018-08-01] MEDS: Lisinopril 20 MG TABLET PO SCH (09:04)
[2018-08-01 09:40] LABS: Alanine Aminotransferase 19 Units/L (7-52); Albumin 2.4 g/dL (3.5-5.7); Albumin/Globulin Ratio 0.7 (1.1-2.2); Alkaline Phosphatase 140 Units/L (34-104); Aspartate Amino Transferase 19 Units/L (13-39); Bilirubin,Direct 0.5 mg/dL (0.0-0.2); Bilirubin,Indirect 0.5 mg/dL (0.0-1.2); Globulin 3.5 g/dL (2.4-3.5); Total Protein 5.9 g/dL (6.4-8.9)
--- NOTE | 2018-08-01 11:27 | Internal Med Progress Note ---
Hospitalist Progress Note - Encounter Date of Encounter: 08/01/18 Time of Encounter: 08:30 - Subjective Interval History: patient was seen and examined at bedside. has no complaints. follows commands appropriately. is agreeable fro GI procedure. tolerating PO diet ( npo now for procedure) denies any further weakness in the left sided hemiplegia. denies fever, chills, N/V/D. - Exam Vitals: Temp Pulse Resp BP Pulse Ox 98.0 F 57 18 153/67 96 08/01/18 07:26 08/01/18 08:55 08/01/18 08:55 08/01/18 07:26 08/01/18 08:55 Exam: General: No acute distress, drowsy but easily arrousable. AAO x 2 ( knows she is hospital, believes its 2011, knows president) , obese, not cooperative with exam. 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 Acute change in mental status likely multifactorial-secondary to bacteremia-likely secondary to UTI; hepatitis A, and acute CVA mental status improved and back to baseline Continue Ceftriaxone IV based on culture sensitivities (day 11/17 of abx)- no leukocytosis / aferbrile since 2. Acute CVA neurology evaluation appreciated diet adjusted as per speech therapist's recommendations carotid doppler pending TTE with EF of 65-70% PT sukhal recommending SNF continue aspirin and statin therapy 3. Elevated Troponin level cardiology input appreciated, cardiology signed off no acute intervention recommended 4. UTI/ Ecoli bacteremia continue IV abx - last day today repeat blood cx and ucx negative 5. Elevated transaminases likely secondary to Hepatitis A transaminases wnl continue supportive care 6. LE DVT hematology on board continue management as per hematology - will discuss Op Anticoagulation with hematology. continue heparin drip at this time closely monitor H&H 7. Acute on chronic anemia iron deficiency anemia - recieved IV iron folic acid 6.5- started on oral supplements s/p EGD on 07/28/18: no acute bleeding reported scheduled for colonoscopy on 08/01 on heparin drip s/p one unit PRBC transfusion on 07/30/18, repeat H&H within acceptable range, will continue to monitor GI and hematology follow up requested follow-up with Dr. Marie at [facility] 4 weeks after discharge 8. Hypophosphatemia resolved continue to monitor electrolytes and replace as needed 9. DM type II sliding scale insulin algorithm monitor fingerstick and blood glucose ADA diet 10. HTN Noted to be hypertensive this morning- increased amlodipine to 10 mg daily will closely monitor BP and adjust antihypertensive medications as needed DVT ppx: continue heparin drip Care plan discussed with patient/RN PT terrance is recommending SNF. - Time Spent with Patient Total time spent is greater than 50% in coordination of care (as documented) at patient's floor/unit and/or counseling patient: 25 - 35 minutes Plan of Care Discussed with: patient Internal Medicine: Result - Labs CBC & Chem 7: 08/01/18 05:35 08/01/18 05:35 Labs: Short CBC 08/01/18 Range/Units 05:35 WBC 7.1 (4.3-11.1) K/mcL Hgb 9.0 L (11.5-15.4) g/dL Hct 28.7 L (35.3-44.9) % Plt Count 350 (140-400) K/mcL Neutrophils # 4.6 (1.6-8.9) K/mcL BMP 08/01/18 05:35 Sodium 137 Potassium 3.7 Chloride 103 Carbon Dioxide 26 BUN 6 L Creatinine 0.42 L Glucose 164 H Calcium 8.4 L Liver Function 08/01/18 Range/Units 05:35 Total Bilirubin 1.0 (0.3-1.0) mg/dL Direct Bilirubin 0.5 H (0.0-0.2) mg/dL AST 19 (13-39) Units/L ALT 19 (7-52) Units/L Alkaline Phosphatase 140 H (34-104) Units/L Albumin 2.4 L (3.5-5.7) g/dL - ABG Interpretation ABG results: PT/INR, D-dimer PT 15.3 Seconds (9.4-12.1) H 07/23/18 01:15 Consult Discharge Plan - Plan Referrals: Andriy West MD [Primary Care Provider] - (Patient is going to [facility] no PCP appointment needed) (1) Diabetes mellitus Qualifiers: Diabetes mellitus type: type 2 Diabetes mellitus senior care insulin use: with counter former use Chronic kidney disease stage: stage 3 (moderate) (5) UTI (urinary tract infection) Qualifiers: Urinary tract infection type: site unspecified Hematuria presence: with hematuria Qualified Code(s): N39.0 - Urinary tract infection, site not specified; R31.9 - Hematuria, unspecified (6) Altered mental status Qualifiers: Altered mental status type: somnolence Qualified Code(s): R40.0 - Somnolence (8) Anemia Qualifiers: Anemia type: unspecified type Qualified Code(s): D64.9 - Anemia, unspecified
[2018-08-01] MEDS ORDERED: Propofol 500 MG/50 ML INFUS..BTL ONE (13:23)
[2018-08-01] MEDS: cefTRIAXone 2,000 MG in Water for inj. (sterile) 20 ML IVP SCH (16:17)
[2018-08-01] MEDS: Folic Acid 1 MG TABLET PO SCH (16:17)
[2018-08-01] MEDS: Heparin 25,000 UNIT/250 ML D5W 25,000 UNIT/250 ML IV.SOLN IVC SCH (17:43)
[2018-08-02 05:58] LABS: Hematocrit 27.3 % (35.3-44.9); Hemoglobin 8.6 g/dL (11.5-15.4)
[2018-08-02] MEDS: Folic Acid 1 MG TABLET PO SCH (07:54)
[2018-08-02] MEDS: Aspirin 81 MG TAB.CHEW PO SCH (07:54)
[2018-08-02] MEDS: Lisinopril 20 MG TABLET PO SCH (07:54)
[2018-08-02] MEDS: Insulin LISPRO 300 UNITS/3 ML VIAL SQ SCH ×2 (07:55→11:52)
--- NOTE | 2018-08-02 08:05 | Discharge Summary ---
- NOTES TO OUTPATIENT PROVIDER Notes to Outpatient Provider: CBC to be repeated in 3 days. follow up with Gi to have colonoscopy repeated once able to be off Anticoagulation. follow with Dr. Dr. Marie at [facility] 4 weeks after discharge. follow up with cardiology as OP. follow up with vascular surgery forleft ICA stenosis Orders not resulted at time of discharge: Pending orders 08/03/18 05:40 Heparin anti-factor XA UFH [COAG] Timed Date of Encounter: 08/02/18 Time of Encounter: 08:03 - Discharge Diagnosis (1) Acute CVA (cerebrovascular accident) Priority: Primary Status: Acute (2) Diabetes mellitus Priority: Secondary Status: Acute Qualifiers: Diabetes mellitus type: type 2 Diabetes mellitus snf insulin use: with snf use Diabetes mellitus complication status: with kidney complications Diabetes mellitus complication detail: with chronic kidney disease Chronic kidney disease stage: stage 3 (moderate) Qualified Code(s): E11.22 - Type 2 diabetes mellitus with diabetic chronic kidney disease; N18.3 - Chronic kidney disease, stage 3 (moderate); 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 (3) CVA, old, ataxia Priority: Secondary Status: Chronic (4) DVT prophylaxis Priority: Secondary Status: Inactive (5) Acute deep vein thrombosis (DVT) of iliac vein of left lower extremity Priority: Secondary Status: Acute (6) UTI (urinary tract infection) Priority: Secondary Status: Acute Qualifiers: Urinary tract infection type: acute cystitis Hematuria presence: with hematuria Qualified Code(s): N30.01 - Acute cystitis with hematuria (7) Altered mental status Priority: Secondary Status: Inactive Qualifiers: Altered mental status type: somnolence Qualified Code(s): R40.0 - Somnolence (8) Elevated liver enzymes Priority: Secondary Status: Acute (9) Anemia Priority: Secondary Status: Acute Qualifiers: Anemia type: unspecified type Qualified Code(s): D64.9 - Anemia, unspecified (10) Elevated troponin Priority: Secondary Status: Acute (11) Hepatitis A Priority: Secondary Status: Acute Qualifiers: Hepatic coma status: without hepatic coma Qualified Code(s): B15.9 - Hepatitis A without hepatic coma (12) Bacteremia Priority: Secondary Status: Acute Hospital course: "Ms. Blakely is a 72 year old female Patient presented to the [facility] emergency room for altered mental status. She had been seen 2 days previously and was diagnosed with a DVT. She has a history of blood clots and was taking anticoagulation at home that she missed some doses. She was found to have a DVT and was started on Lovenox to be given at home. On the morning of her presentation she was difficult to awaken from sleep. In the afternoon her family brought her into the emergency room for further evaluation. 2 days ago as well patient had a low blood sugar in the 50s but she was asymptomatic. She has a history of stroke in 2010 affecting her left side. Her last known well was the evening prior to her presentation. Stroke alert was called. Vital signs: Temperature 90.8 degrees, pulse 83, respiratory rate 15, blood pressure 109/45, oxygen saturation 96 on 2 L. CBC: White count 19.8, hemoglobin 9.1, hematocrit 28.0, platelets 269. BMP: Sodium 136, potassium 4.6, chloride 104, bicarbonate 21, BUN 23, creatinine 1.53, glucose 128 Lactic acid 2.2 Ammonia 43 Total bilirubin 6.4 AST 133 ALT 126 Alkaline phosphatase 265 Troponin 0.06 Creatinine kinase 292 INR 1.3 Urinalysis: Large leukocyte esterase, numerous white blood cells, many bacteria, culture indicated Occult blood test negative Urine tox screen negative Blood alcohol level less than 10 EKG: Normal sinus rhythm with no ischemic changes. Imaging: Head CT: No acute intracranial abnormality, no size changer 48 hours Chest x-ray: No acute process Head and neck CT angiogram: Suboptimal due to contrast infiltration Abdomen and pelvis CT: No acute intra-abdominal or intrapelvic abnormality Emergency department spoke with neurology at [facility]. Recommended patient have an MRI, and opinion was thought that her symptoms may be more systematic problem than the simple stroke. Patient was given 2 L IV fluids, vancomycin and Zosyn. Blood cultures were drawn. Patient's mental status gradually improved, patient was started on heparin drip and transferred to [facility] for further management." patient presented with above presentation and was admitted on 07/22/18- my first encounter with the patient was on 08/01/2018- i was given check out by my colleague that she is stable for discharge pending colonoscopy which was performed on 08/01 without active bleeding. as per chart review she was treated for below problems. Acute change in mental status was likely multifactorial-secondary to bacteremia- likely secondary to UTI; hepatitis A, and acute CVA, neurology consulted and stroke work up performed and neurology signed off- recommended OP follow up with vascular surgery ( discussed with neurologist vacuum cleaner repair person nataliia Barrios to carotid doppler findings as her stroke is on ventura right and the stenosis on ventura left he recommended to continue with antiplatelets and anticoagulation adn follow up with vascular surgery as OP. ) . ( imaging studies as below ) mental status improved and back to baseline, A1c 6.4 Continue Ceftriaxone IV based on culture sensitivities (day 10 of abx)- no leukocytosis / aferbrile since Elevated Troponin level on admission was noted and cardiology coansulted, TTE performed ( results below), no acute interventions recommended by cardiology. she remained chest pain free through out admission. UTI/ Ecoli bacteremia- ecoli UTI and bacteremia with ecoli and klebsiella which were montoya sensitive. she received 10 days of IV abx and was transitioned to oral ABx to finish a 14 day course. repeat bcx were negative x 2. repeat Ucx negative. CT A/P without acute abnormalities ( full report below) Elevated transaminases likely secondary to Hepatitis A- GI consulted and MRCP performed which showed non-obstructive gall stones and no ERCP was recommended " Likely that stones will pass without intervention, no need for ERCP." LFTS were trended and trended down to WNL. LE DVT hematology was consulted and she was started on heparin drip, she developed Acute anemia and underwent endoscopy adn colonoscopy. H/H were fol lowed and remained stable >8. it was recommended as per my discussion with the hematology team to convert her to eliquis. for facility to follow CBC in 3 days. Acute on chronic anemia, s/p one unit PRBC transfusion on 07/30/18,iron deficiency anemia - received IV iron, folic acid 6.5- started on oral supplements s/p EGD on 07/28/18: no acute bleeding reported, colonoscopy on 08/01- polyps that were recommended to be removed on follow up colonoscopy once she can be off anticoagulation. follow-up with Dr. Marie at [facility] 4 weeks after discharge PT/OT recommended SNF placement and SW and CM on board she was cleared for discharge by all service consultant to rehab. nursing staff aware to provide her with follow up appointmnts with cardiology, GI, hematology and neurology and vascular surgery - HAV infection is usually a self-limited illness. - Fulminant hepatic failure occurs in less than 1 percent of cases. - Infection confers lifelong immunity. - Handwashing (including after using the bathroom, changing diapers, and before preparing or eating foods). - Heating foods appropriately (the virus can be inactivated by heating to >185 F for one minute). Cooked foods can transmit HAV if the temperature during food preparation is inadequate to kill the virus or if food is contaminated after cooking. - Chlorine, iodine, and disinfecting solutions (household bleach 1:100 dilution) are effective for inactivation of HAV. XR/XR chest 1V portable IMPRESSION: No active cardiopulmonary disease C head:IMPRESSION: No acute intracranial abnormality. No size changer 48 hours. Old right inferior basal ganglia-medial right temporal lobe infarct with tissue loss and enlargement of the adjacent right lateral ventricle-unchanged from exam dating back to June 2016. Stable atrophy and moderate old microvascular ischemic change both cerebral hemispheres. CTA head and neck: IMPRESSION: Suboptimal contrast bolus, due to IV infiltration at the time of injection. Study is nondiagnostic for accurate evaluation of stenosis of the cervical and intracranial arteries. Atherosclerotic plaque of the carotid bifurcations and proximal internal carotid arteries. Extensive atherosclerotic calcification of the cavernous and supraclinoid internal carotid arteries. If there is ongoing clinical concern for arterial stenosis, consider repeat CTA of the head and neck or MRA of the head and neck. Ct A/P: IMPRESSION: No acute intraabdominal or intrapelvic abnormality on noncontrast exam. carotid doppler: Carotid Ultrasound complete Right ICA has nonstenotic plaque only. Left Ica has a 60 to 79% Stenosis and appears to be in the lower end of the scale with plaque noted MRI head: IMPRESSION: 1. Punctate lacunar infarction in the right subinsular white matter. No associated hemorrhage. 2. Parenchymal volume loss and sequela of chronic microvascular ischemic changes and old infarctions. The findings were sent to the [facility] at 9:44 am on 07/22/2018to be communicated to a licensed caregiver. abdominal US: IMPRESSION: Status post cholecystectomy, with normal caliber common duct for the post cholecystectomy state. Hepatic echotexture can be in keeping with fatty liver or hepatocellular disease. Abdominal MRI: MR/MR abdomen wo con IMPRESSION: Status post cholecystectomy. Two small stones in the common bile duct measuring up to 4 mm in size without significant biliary ductal dilatation. Unremarkable appearance of the pancreatic duct. Mild hepatic steatosis. TTE: EF 65-70% normal LV systlic function, mild diastolic dysfunction, normal RV function, mildly dilated LA, mild TR, Discharge discussed with: patient, nurse, social work, case management, service consultant - Time Spent with Patient Total time spent providing and/or coordinating discharge services: Time spent: Greater than 30 minutes (45) - Discharge Medications Prescriptions: New Aspirin 81 mg PO DAILY #30 tab.chew Apixaban [Eliquis] 5 mg PO BID #60 tablet amLODIPine [Norvasc] 10 mg PO DAILY #30 tablet Cefdinir [Omnicef] 300 mg PO BID 4 Days #8 capsule Folic Acid 1 mg PO DAILY tablet Apixaban [Eliquis] 10 mg PO BID 7 Days tablet Continued Glimepiride [Amaryl] 2 mg PO DAILY Omeprazole [PriLOSEC] 20 mg PO DAILY Docusate [Colace] 100 mg PO BID metFORMIN [Glucophage] 250 mg PO DAILY Lisinopril [Zestril] 40 mg PO DAILY Glimepiride [Amaryl] 1 mg PO DAILY Atorvastatin [Lipitor] 40 mg PO HS Discontinued Promethazine [Phenergan] 25 mg PO BID Home Medications: Docusate [Colace] 100 mg PO BID 10/17/16 [History] Glimepiride [Amaryl] 1 mg PO DAILY 10/17/16 [History] Lisinopril [Zestril] 40 mg PO DAILY 10/17/16 [History] Omeprazole [PriLOSEC] 20 mg PO DAILY 10/17/16 [History] metFORMIN [Glucophage] 250 mg PO DAILY 10/17/16 [History] Atorvastatin [Lipitor] 40 mg PO HS 07/19/18 [History] Glimepiride [Amaryl] 2 mg PO DAILY 07/22/18 [History] Apixaban [Eliquis] 5 mg PO BID #60 tablet 08/02/18 [Rx] Apixaban [Eliquis] 10 mg PO BID 7 Days tablet 08/02/18 [Rx] Aspirin 81 mg PO DAILY #30 tab.chew 08/02/18 [Rx] Cefdinir [Omnicef] 300 mg PO BID 4 Days #8 capsule 08/02/18 [Rx] Folic Acid 1 mg PO DAILY tablet 08/02/18 [Rx] amLODIPine [Norvasc] 10 mg PO DAILY #30 tablet 08/02/18 [Rx] Allergies/Adverse Reactions: Allergy/AdvReac Type Severity Reaction Status Date / Time No Known Allergies Allergy Verified 07/22/18 19:40 Date of admission: 07/22/18 00:06 Primary care physician: Andriy West MD Consults: 07/22/18 03:05 Consult to Gastroenterology [CONS] Routine Consulting Provider: Gastroenterology Cassie Reason for Consult: Elevated liver enzymes, unknown cause. Call Completed: No 07/22/18 07:54 Consult to Invasive Line Access Team [CONS] Routine Reason for Consult: Picc Line Insertion Line Type: PICC 07/22/18 08:28 Midline [Consult to Invasive Line Access Team] [CONS] Routine Reason for Consult: decreased IV access, increased need for IV meds and blood draws r/t heparin gtt and probable transfusion Line Type: Midline PICC line indications: Limited vascular access 07/22/18 09:37 Consult to Cardiology [CONS] Routine Comment: Consulting Provider: Cardiology Cassie Reason for Consult: elevated troponin Call Completed: Yes 07/22/18 09:42 Consult to Factory Lay Out Engineer [CONS] Routine Reason for SW Consult: d/c planning 07/22/18 09:58 Consult to Neurology [CONS] Routine Consulting Provider: [facility] Reason for Consult: lacunar infarct, AMS Call Completed: Yes 07/22/18 14:13 Consult to Physical Therapy [CONS] Routine Comment: Evaluate, develop and implement POC Reason for Consult: weakness Does patient have active BEDREST order?: No Is patient medically & hemodynamically stable?: Yes Patient assessed for mobility or mobilized this visit?: Yes 07/22/18 14:14 Consult to Occupational Therapy [CONS] Routine Comment: Evaluate, develop and implement POC Reason for Consult: weakness Does patient have active BEDREST order?: No Is patient medically & hemodynamically stable?: Yes Patient assessed for mobility or mobilized this visit?: Yes 07/23/18 02:47 Consult to DIGITAL RESEARCH ANALYST [CONS] Routine Consulting Provider: PATTERNMAKER BENCH Cassie Reason for Consult: Bleeding from vagina Call Completed: No 07/23/18 06:26 Consult to Speech Therapy [CONS] Routine Comment: Evaluate, develop and implement POC Reason for Consult: May need swallow eval Call Completed: Yes 07/23/18 15:39 Consult to Oncology Hematology [CONS] Routine Consulting Provider: Rickie Marie Reason for Consult: anemia, LE DVT Call Completed: Yes - Constitutional Vitals: Temp Pulse Resp BP Pulse Ox 98.3 F 67 18 145/63 96 08/02/18 07:25 08/02/18 07:25 08/02/18 07:25 08/02/18 07:25 08/02/18 07:25 Exam: General: No acute distress, Axox3 HEENT: EOMI, NC/AT, no scleral icterus, left sided facial droop Respiratory: no rales, equal air entry bilaterally, no wheezing Cardiovascular: Regular, Rate, Rhythm, No murmurs GI: Soft, Non tender, non distended, normal bowel sounds Ext: trace right LE edema, pitting LLE edema, no tenderness, positive pulses Neuro: awake and alert, left hemiparesis/ spastic in the left side, knows place, year and person. Rest of the clinical exam is noncontributory - Patient Status Disposition: Transfer SNF Condition: Fair Overall status at discharge: patient is progressing back to baseline - Discharge Instructions Follow Up With: Benito Mata MD [Partnered Physician] - Luis E Russell MD [Non-Partnered Physician] - Andriy West MD [Primary Care Provider] - (Patient is going to [facility] no PCP appointment needed) Lola Cotton MD [Partnered Physician] - - Diet and Activity Activity: as per physical therapy Diet: diabetic diet, low salt diet
[2018-08-02] MEDS ORDERED: amLODIPine 5 MG TABLET PO SCH (09:00)
[2018-08-02] MEDS ORDERED: Cefdinir 300 MG CAPSULE PO SCH (09:00)
[2018-08-02] MEDS ORDERED: Apixaban 5 MG TABLET PO SCH ×2 (09:00)
--- NOTE | 2018-08-02 09:39 | Physician Discharge Referral ---
ExtendedCare Referral Info Provider in Charge after Transfer: PCP Institutional Level of Care: Skilled - Diagnosis (1) Acute CVA (cerebrovascular accident) Status: Acute (2) Diabetes mellitus Status: Acute (3) CVA, old, ataxia Status: Chronic (4) DVT prophylaxis Status: Inactive (5) Acute deep vein thrombosis (DVT) of iliac vein of left lower extremity Status: Acute (6) UTI (urinary tract infection) Status: Acute (7) Altered mental status Status: Inactive (8) Elevated liver enzymes Status: Acute (9) Anemia Status: Acute (10) Elevated troponin Status: Acute (11) Hepatitis A Status: Acute (12) Bacteremia Status: Acute - Transfer Medications Prescriptions: Aspirin 81 mg PO DAILY #30 tab.chew Apixaban [Eliquis] 5 mg PO BID #60 tablet Apixaban [Eliquis] 10 mg PO BID 7 Days tablet amLODIPine [Norvasc] 10 mg PO DAILY #30 tablet Cefdinir [Omnicef] 300 mg PO BID 4 Days #8 capsule Home Medications: Docusate [Colace] 100 mg PO BID 10/17/16 [History] Glimepiride [Amaryl] 1 mg PO DAILY 10/17/16 [History] Lisinopril [Zestril] 40 mg PO DAILY 10/17/16 [History] Omeprazole [PriLOSEC] 20 mg PO DAILY 10/17/16 [History] metFORMIN [Glucophage] 250 mg PO DAILY 10/17/16 [History] Atorvastatin [Lipitor] 40 mg PO HS 07/19/18 [History] Glimepiride [Amaryl] 2 mg PO DAILY 07/22/18 [History] Apixaban [Eliquis] 5 mg PO BID #60 tablet 08/02/18 [Rx] Apixaban [Eliquis] 10 mg PO BID 7 Days tablet 08/02/18 [Rx] Aspirin 81 mg PO DAILY #30 tab.chew 08/02/18 [Rx] Cefdinir [Omnicef] 300 mg PO BID 4 Days #8 capsule 08/02/18 [Rx] Folic Acid 1 mg PO DAILY tablet 08/02/18 [Rx] amLODIPine [Norvasc] 10 mg PO DAILY #30 tablet 08/02/18 [Rx] Allergies/Adverse Reactions: Allergy/AdvReac Type Severity Reaction Status Date / Time No Known Allergies Allergy Verified 06/14/19 19:40 - Respiratory Orders Smoking Cessation: Smoking cessation has been advised. For more information, call the [place] Tobacco Quit Line at 7-414-FFNK-NOW. - Lab Orders Lab Orders: CBC (in 3 days) - Rehabiliation Orders Rehab Potential: Fair (advanced soft diet chopped meat , diabetic, low salt) Rehab Orders: ROM Exercises, Evaluation for Physical Therapy, Evaluation for Occupational Therapy, Evaluation for Speech Therapy - Diet Orders Mechanical Soft (advance soft diet, chopped meat, doabetic and low salt) CERTIFICATION: I certify that the transfer of the above named patient to an Extended Care Facility is necessary for the continuing treatment of the diagnosis listed. The above information is true and accurate reflection of patient's current condition. Confidential - Redisclosure prohibited without a patient's written consent.
[2018-08-02 11:27] VITALS: BP 140/63
== END 2018-08-02 14:39 | DRG 65 ==
LOC: 2NNU → SUATTDRO 07-22 00:06 → OBSVTOIN 07-22 00:06
PROVIDERS: ADMIT Family Medicine; ATTEND Internal Medicine

== ENCOUNTER 2021-03-27 23:01 | Inpatient (IN) ==
[2021-03-28] MEDS ORDERED: D5% in Water 1,000 ML IVC PRN (02:17)
[2021-03-28] MEDS ORDERED: Dextrose Gel 15 GM/37.5 ML TUBE PO PRN ×2 (02:17)
[2021-03-28] MEDS ORDERED: *HR* Dextrose 50 % in Water (Syg) 50 ML SYRINGE IVP PRN (02:17)
[2021-03-28 02:45] LABS: VBG Ionized Calcium 0.82 mmol/L (1.15-1.35)
[2021-03-28 03:12] LABS: Basophils % 0.1 %; Hematocrit 34.9 % (35.3-44.9); Hemoglobin 10.6 g/dL (11.5-15.4); Immature Granulocytes % 0.7 % (0-4); Lymphocytes # 1.7 K/mcL (0.6-4.6); Lymphocytes % 8.4 %; Mean Corpuscular HGB Conc 30.4 g/dL (31.6-35.5); Mean Corpuscular Hemoglobin 30.5 pg (28.0-33.3); Mean Corpuscular Volume 100.3 fL (83.0-100.0); Mean Platelet Volume 11.3 fL (9.4-12.4); Monocytes # 0.5 K/mcL (0.0-1.3); Monocytes % 2.4 %; Platelet Count 416 K/mcL (140-400); Red Blood Count 3.48 M/mcL (3.82-4.97); Red Cell Distribution Width 15.6 % (11.5-14.5); Segmented Neutrophils % 88.4 %; White Blood Count 20.4 K/mcL (4.3-11.1)
[2021-03-28 03:15] LABS: Albumin 2.4 g/dL (3.5-5.7); Albumin/Globulin Ratio 0.6 (1.1-2.2); Bilirubin,Total 0.4 mg/dL (0.3-1.0); Calcium 7.1 mg/dL (8.6-10.3); Globulin 3.9 g/dL (2.4-3.5); Total Protein 6.3 g/dL (6.4-8.9)
[2021-03-28] MEDS ORDERED: *HR* FentaNYL (PF) 100 MCG/2 ML VIAL IVP ONE (03:33)
[2021-03-28] MEDS: Calcium Gluconate 1gm/50mL 1 GM/50 ML BAG IVPB SCH ×2 (04:05→05:31)
[2021-03-28] MEDS: Albumin 25% 25gram/100mL 25 GM/100 ML IV.SOLN IVC SCH ×5 (04:05→17:10)
[2021-03-28] MEDS: Insulin LISPRO 300 UNITS/3 ML VIAL SUBQ SCH ×3 (06:49→17:55)
[2021-03-28] MEDS ORDERED: Piperacillin/Tazobactam 3.375 GM in 0.9 % Sodium Chloride Mini Bag 100 ML IVPB SCH ×2 (08:00→19:00)
[2021-03-28] MEDS ORDERED: Ipratropium 1 PUFF INHALER IH PRN (08:01)
[2021-03-28] MEDS ORDERED: *HR* Heparin 5,000 UNIT/ML VIAL IVP PRN ×2 (08:53)
[2021-03-28] MEDS ORDERED: Heparin 25,000UNIT/250ML 1/2NS 25,000 UNIT/250 ML IV.SOLN IVC SCH (09:00)
[2021-03-28] MEDS ORDERED: Apixaban 5 MG TABLET PO SCH (09:00)
[2021-03-28] MEDS: D5% in Water 1,000 ML IVC SCH ×2 (09:23→22:22)
[2021-03-28 11:00] LABS: INR 2.1; Prothrombin Time 23.7 Seconds (9.4-12.1)
[2021-03-28 11:07] LABS: Heparin anti-factor XA UFH 1.33 IU/mL (0.30-0.70)
[2021-03-28 11:12] LABS: Calcium 7.4 mg/dL (8.6-10.3); Potassium 3.7 mEq/L (3.5-5.1)
[2021-03-28] MEDS: Heparin 25,000UNIT/250ML 1/2NS 25,000 UNIT/250 ML IV.SOLN IVC SCH (11:24)
[2021-03-28] MEDS: Aspirin 81 MG TAB.CHEW PO SCH (11:37)
[2021-03-28 12:49] LABS: Hematocrit 24.1 % (35.3-44.9); Hemoglobin 7.2 g/dL (11.5-15.4); Mean Corpuscular HGB Conc 29.9 g/dL (31.6-35.5); Mean Corpuscular Volume 100.4 fL (83.0-100.0); Mean Platelet Volume 11.5 fL (9.4-12.4); Platelet Count 235 K/mcL (140-400); Red Cell Distribution Width 15.3 % (11.5-14.5); White Blood Count 15.2 K/mcL (4.3-11.1)
[2021-03-28 14:23] LABS: Hemoglobin 7.3 g/dL (11.5-15.4)
[2021-03-28 22:22] LABS: Hematocrit 27.1 % (35.3-44.9); Hemoglobin 8.1 g/dL (11.5-15.4)
[2021-03-29] MEDS: Piperacillin/Tazobactam 3.375 GM in 0.9 % Sodium Chloride Mini Bag 100 ML IVPB SCH ×2 (00:13→11:43)
[2021-03-29] MEDS: Insulin LISPRO 300 UNITS/3 ML VIAL SUBQ SCH ×4 (01:29→20:29)
[2021-03-29] MEDS ORDERED: Vancomycin 1,500 MG/265 ML IV.SOLN IVPB ONE (07:00)
[2021-03-29] MEDS: Aspirin 81 MG TAB.CHEW PO SCH (08:50)
[2021-03-29 08:55] LABS: Hematocrit 28.9 % (35.3-44.9); Hemoglobin 8.5 g/dL (11.5-15.4); Mean Corpuscular HGB Conc 29.4 g/dL (31.6-35.5); Mean Corpuscular Hemoglobin 29.4 pg (28.0-33.3); Mean Platelet Volume 11.2 fL (9.4-12.4); Platelet Count 290 K/mcL (140-400); Red Blood Count 2.89 M/mcL (3.82-4.97); Red Cell Distribution Width 15.1 % (11.5-14.5); White Blood Count 16.9 K/mcL (4.3-11.1)
[2021-03-29 09:14] LABS: Calcium 6.9 mg/dL (8.6-10.3); Potassium 4.2 mEq/L (3.5-5.1)
[2021-03-29 09:20] LABS: Phosphorous 3.1 mg/dL (2.7-4.5)
[2021-03-29] MEDS: Heparin 25,000UNIT/250ML 1/2NS 25,000 UNIT/250 ML IV.SOLN IVC SCH (11:43)
[2021-03-29] MEDS ORDERED: D5% in 0.45% NACL 1,000 ML IVC SCH (12:45)
[2021-03-29] MEDS ORDERED: Calcium Gluconate 1gm/50mL 1 GM/50 ML BAG IVPB ONE (12:45)
[2021-03-30] MEDS: Piperacillin/Tazobactam 3.375 GM in 0.9 % Sodium Chloride Mini Bag 100 ML IVPB SCH ×3 (00:59→23:17)
[2021-03-30 02:11] LABS: Basophils % 0.1 %; Hemoglobin 8.4 g/dL (11.5-15.4); Immature Granulocytes % 1.1 % (0-4); Lymphocytes # 1.1 K/mcL (0.6-4.6); Lymphocytes % 7.7 %; Mean Corpuscular Hemoglobin 29.5 pg (28.0-33.3); Mean Corpuscular Volume 98.2 fL (83.0-100.0); Mean Platelet Volume 11.2 fL (9.4-12.4); Monocytes # 0.3 K/mcL (0.0-1.3); Monocytes % 1.9 %; Nucleated Red Blood Cells 0.1 /100 WBC (0); Platelet Count 331 K/mcL (140-400); Red Blood Count 2.85 M/mcL (3.82-4.97); Red Cell Distribution Width 14.8 % (11.5-14.5); Segmented Neutrophils % 89.2 %; White Blood Count 14.5 K/mcL (4.3-11.1)
[2021-03-30 02:30] LABS: Calcium 6.9 mg/dL (8.6-10.3); Magnesium 0.9 mg/dL (1.6-2.6); Potassium 3.7 mEq/L (3.5-5.1)
[2021-03-30] MEDS ORDERED: Vancomycin 1,500 MG/265 ML IV.SOLN IVPB ONE (06:00)
[2021-03-30] MEDS ORDERED: D5% in Water 1,000 ML IVC SCH (08:30)
[2021-03-30] MEDS: Insulin LISPRO 300 UNITS/3 ML VIAL SUBQ SCH ×4 (09:00→20:18)
[2021-03-30] MEDS: Aspirin 81 MG TAB.CHEW PO SCH (09:18)
[2021-03-30] MEDS ORDERED: Calcium Gluconate 1gm/50mL 1 GM/50 ML BAG IVPB ONE (13:19)
[2021-03-31] MEDS: Insulin LISPRO 300 UNITS/3 ML VIAL SUBQ SCH ×4 (03:24→20:19)
[2021-03-31] MEDS: Heparin 25,000UNIT/250ML 1/2NS 25,000 UNIT/250 ML IV.SOLN IVC SCH ×3 (03:25→21:30)
[2021-03-31 04:16] LABS: Basophils % 0.2 %; Hematocrit 29.3 % (35.3-44.9); Hemoglobin 8.8 g/dL (11.5-15.4); Lymphocytes # 1.1 K/mcL (0.6-4.6); Mean Corpuscular Volume 96.7 fL (83.0-100.0); Mean Platelet Volume 11.2 fL (9.4-12.4); Monocytes # 0.3 K/mcL (0.0-1.3); Monocytes % 2.1 %; Neutrophils # 10.7 K/mcL (1.6-8.9); Platelet Count 341 K/mcL (140-400); Red Blood Count 3.03 M/mcL (3.82-4.97); Red Cell Distribution Width 15.1 % (11.5-14.5); Segmented Neutrophils % 87.7 %; White Blood Count 12.2 K/mcL (4.3-11.1)
[2021-03-31 04:40] LABS: Calcium 6.6 mg/dL (8.6-10.3); Magnesium 0.9 mg/dL (1.6-2.6); Potassium 3.8 mEq/L (3.5-5.1)
[2021-03-31] MEDS: Aspirin 81 MG TAB.CHEW PO SCH ×2 (08:06→10:09)
[2021-03-31] MEDS ORDERED: Vancomycin 1,500 MG/265 ML IV.SOLN IVPB ONE (09:00)
[2021-03-31 10:49] LABS: Estimated Average Glucose 103 mg/dl; Hemoglobin A1C 5.2 %
[2021-03-31] MEDS: Piperacillin/Tazobactam 3.375 GM in 0.9 % Sodium Chloride Mini Bag 100 ML IVPB SCH (11:49)
[2021-03-31] MEDS: Calcium Gluconate 1gm/50mL 1 GM/50 ML BAG IVPB SCH ×2 (11:50→12:46)
[2021-03-31] MEDS: Albumin 25% 25gram/100mL 25 GM/100 ML IV.SOLN IVPB SCH (20:17)
[2021-03-31] MEDS ORDERED: Albumin 25% 25gram/100mL 25 GM/100 ML IV.SOLN IVPB ONE (20:22)
[2021-03-31] MEDS ORDERED: 0.9 % Sodium Chloride 500 ML IVC ONE (23:15)
[2021-04-01] MEDS: Piperacillin/Tazobactam 3.375 GM in 0.9 % Sodium Chloride Mini Bag 100 ML IVPB SCH ×2 (02:15→12:16)
[2021-04-01] MEDS: Insulin LISPRO 300 UNITS/3 ML VIAL SUBQ SCH ×3 (02:16→12:16)
[2021-04-01] MEDS: Albumin 25% 25gram/100mL 25 GM/100 ML IV.SOLN IVPB SCH ×2 (03:47→07:42)
[2021-04-01 06:36] LABS: Basophils % 0.1 %; Hematocrit 21.3 % (35.3-44.9); Hemoglobin 6.5 g/dL (11.5-15.4); Immature Granulocytes % 1.1 % (0-4); Lymphocytes # 0.8 K/mcL (0.6-4.6); Lymphocytes % 7.8 %; Mean Corpuscular HGB Conc 30.5 g/dL (31.6-35.5); Mean Corpuscular Hemoglobin 29.5 pg (28.0-33.3); Mean Corpuscular Volume 96.8 fL (83.0-100.0); Mean Platelet Volume 10.8 fL (9.4-12.4); Monocytes # 0.2 K/mcL (0.0-1.3); Monocytes % 2.4 %; Nucleated Red Blood Cells 0.2 /100 WBC (0); Platelet Count 226 K/mcL (140-400); Red Cell Distribution Width 14.9 % (11.5-14.5); Segmented Neutrophils % 88.6 %; White Blood Count 10.1 K/mcL (4.3-11.1)
[2021-04-01 06:45] LABS: Calcium 7.4 mg/dL (8.6-10.3); Magnesium 1.5 mg/dL (1.6-2.6); Phosphorous 2.6 mg/dL (2.7-4.5); Potassium 3.2 mEq/L (3.5-5.1)
[2021-04-01] MEDS ORDERED: Ringers Solution, Lactated 500 ML IVC ONE (07:04)
[2021-04-01] MEDS ORDERED: 0.9 % Sodium Chloride 250 ML IVC SCH (07:15)
[2021-04-01] MEDS: Aspirin 81 MG TAB.CHEW PO SCH (07:35)
[2021-04-01] MEDS: Heparin 25,000UNIT/250ML 1/2NS 25,000 UNIT/250 ML IV.SOLN IVC SCH (13:06)
[2021-04-01] MEDS: *HR* FentaNYL (PF) 100 MCG/2 ML VIAL IVP PRN ×2 (14:26→22:36)
[2021-04-01] MEDS: *HR* LORazepam 2 MG/ML VIAL IVP PRN (17:11)
[2021-04-02] MEDS: *HR* FentaNYL (PF) 100 MCG/2 ML VIAL IVP PRN (02:57)
[2021-04-02] MEDS: *HR* LORazepam 2 MG/ML VIAL IVP PRN ×2 (04:52→06:54)
[2021-04-03] MEDS: *HR* FentaNYL (PF) 100 MCG/2 ML VIAL IVP PRN (02:22)
[2021-04-03] MEDS: *HR* LORazepam 2 MG/ML VIAL IVP PRN ×2 (06:14→10:43)
[2021-04-03] MEDS: Scopolamine Patch 1.5 MG PATCH.TD72 TD SCH (10:46)
[2021-04-04] MEDS: *HR* LORazepam 2 MG/ML VIAL IVP PRN ×2 (02:34→16:29)
[2021-04-04] MEDS: *HR* FentaNYL (PF) 100 MCG/2 ML VIAL IVP PRN (14:29)
[2021-04-05] MEDS: *HR* FentaNYL (PF) 100 MCG/2 ML VIAL IVP PRN ×2 (03:02→14:59)
[2021-04-05] MEDS: Atropine Sulfate 1% 40 DROP/2 ML BOTTLE SL PRN (03:09)
[2021-04-05 19:01] VITALS: BP 109/67; PULSE 53; TEMP 98.8; O2SAT 95
[2021-04-06] MEDS: Atropine Sulfate 1% 40 DROP/2 ML BOTTLE SL PRN (02:59)
[2021-04-06] MEDS: *HR* FentaNYL (PF) 100 MCG/2 ML VIAL IVP PRN ×3 (03:05→16:12)
[2021-04-06] MEDS: Scopolamine Patch 1.5 MG PATCH.TD72 TD SCH (08:53)
== END 2021-04-06 17:17 | disposition expired | DRG 871 ==
LOC: 3NENU → SUATTDRO 03-28 01:14 → 2ANU 04-04 14:21 → UNDODISIN 04-06 11:23
PROVIDERS: ADMIT Internal Medicine; ATTEND Family Medicine